=== PATIENT | male | born 1970 | race Caucasian/White ===

== ENCOUNTER 2017-02-14 14:51 | Inpatient (IN) | payer BC ==
[~2017-02-14] VITALS: Ht 190.5 cm; Wt 115.2 kg
[2017-02-14] MEDS ORDERED: SILD20TA2 PO (21:51)
[2017-02-14] MEDS ORDERED: MUPI22OI2 TP (21:51)
[2017-02-14] MEDS ORDERED: ALPR2TAB5 PO (21:51)
[2017-02-14] MEDS ORDERED: QUET25TA5 PO (21:51)
[2017-02-14] MEDS ORDERED: DEXT15TA2 PO (21:51)
[2017-02-14] MEDS: QUEtiapine 25 MG TABLET. PO SCH (22:00)
[2017-02-14] MEDS: ALPRAZolam 1 MG TABLET PO PRN (22:06)
[2017-02-14] MEDS: HYDROcodone/APAP 10/325 1 TAB TABLET PO PRN (22:07)
[2017-02-14] MEDS ORDERED: diphenhydrAMINE 50 MG/ML VIAL IVP PRN (22:30)
--- NOTE | 2017-02-14 22:45 | PDOC1 ---
History and Physical Date of Admission Date of Admission DATE: 02/14/17 TIME: 22:38 Source Source: Chart review, Patient History of Present Illness History of Present Illness he had an injury to left lower leg 10 days ago, with a few abrasions near near , and large area of injury on mid pierre, over days, the smaller excoriations have healed well, but the mid pierre area has swollen and turned red and dark and the surrounding area was dark and reddened. He has been hospitalized at [facility] for 2 days, IV vanco, and some improvement He had an ortho consult there who was considering surgery to decompress daily, but have tried some compression with a ALICIA wrap and a pad, that seems to be improving, the surrounding area of redness is diminished. He has video on his iPAD of initial pictures. 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, has been largely healthy despite ADHD, and anxiety, he does have any pulm disorder, , Past Medical History Cardiovascular: No pertinent hx Pulmonary: No pertinent hx CENTRAL NERVOUS SYSTEM: Other (ADHD) GI: No pertinent hx Heme/Onc: No pertinent hx Hepatobiliary: No pertinent hx Psych: Anxiety, Other Rheumatologic: No pertinent hx Infectious disease: No pertinent hx ENT: No pertinent hx Renal/: No pertinent hx Endocrine: No pertinent hx Dermatology: No pertinent hx Family History Family History: No Significant Social History Smoke: No ALCOHOL: none Drugs: None Current Medications Current Medications Current Medications Acetaminophen/ Hydrocodone Bitart (Lortab 10/325) 1 tab PRN Q6HRS PRN PO PAIN Last administered on 02/14/17 22:07; Start 02/14/17 at 21:45 Quetiapine Fumarate (SEROquel) 25 mg QHS PO ; Start 02/14/17 at 22:00 Sildenafil Citrate (Revatio) 25 mg DAILY PO ; Start 02/15/17 at 09:00; Status UNV Alprazolam (Xanax) 2 mg PRN QHS PRN PO ANXIETY / AGITATION Last administered on 02/14/17 22:06; Start 02/14/17 at 22:00 Morphine Sulfate 4 mg PRN Q2HR PRN IV PAIN; Start 02/14/17 at 22:30 Diphenhydramine HCl (Benadryl) 25 mg PRN Q6HRS PRN IVP ITCHING; Start at 22:30 Vancomycin HCl (Vanco Per Pharmacy) 1 each PRN DAILY PRN MC SEE COMMENTS; Start 02/14/17 at 22:30; Status UNV Non-Formulary Medication 1 ea BID PO ; Start 02/15/17 at 09:00; Status UNV Active Scripts Active Reported Sildenafil (Sildenafil Citrate) 20 Mg Tablet 25 Mg PO DAILY Seroquel (Quetiapine Fumarate) 25 Mg Tablet 1 Tab PO QHS Mupirocin Ointment (Mupirocin) 22 Gm Oint...g. 1 Jhon TP BID Amphetamine Salts 15 Mg Tab (Dextroamphetamine/Amphetamine) 15 Mg Tablet 15 Mg PO Alprazolam 2 Mg Tablet 2 Mg PO QHS PRN Allergies Allergies: Coded Allergies: aspirin (Verified Allergy, Unknown, 02/14/17) ROS General: No: Chills, Night Sweats, Fatigue, Malaise, Appetite, Other PSYCHOLOGICAL ROS: YES: Anxiety, Memory difficulties ( when off adderal ), Sleep disturbances, Suicidal ideation, No: Behavioral Disorder, Concentration difficultie, Decreased libido, Depression, Disorientation, Hallucinations, Hostility, Irritablity, Mood Swings , Obsessive thoughts, Other Eyes: No Blurry vision, No Decreased vision, No Double vision, No Dry eyes, No Excessive tearing, No Eye Pain, No Itchy Eyes, No Loss of vision, No Photophobia , No Scotomata, No Uses contacts, No Uses glasses, No Other HEENT: No: Heacaches, Visual Changes, Hearing change, Nasal congestion, Nasal discharge, Oral lesions, Sinus pain, Sore Throat, Epistaxis, Sneezing, Snoring, Tinnitus, Vertigo, Vocal changes, Other ALLERGY AND IMMUNOLOGY: No: Hives, Insect Bite Sensitivity, Itchy/Watery Eyes, Nasal Congestion, Post Nasal Drip, Seasonal Allergies, Other Respiratory: No: Cough, Hemoptysis, Orthopnea, Pleuritic Pain, Shortness of breath, SOB with excertion, Sputum Changes, Stridor, Tachypnea, Wheezing, Other Gastrointestinal: No Nausea, No Vomiting, No Abdominal Pain, No Diarrhea, No Constipation, No Melena, No Hematochezia, No Other Musculoskeletal: Yes Joint Pain, Yes Joint Stiffness, Yes Pain In:, Yes Swelling In: (pierre) Neurological: No Behavorial Changes, No Bowel/Bladder ControlChng, No Confusion , No Dizziness, No Gait Disturbance, No Headaches, No Impaired Coord/balance, No Memory Loss, No Numbness/Tingling, No Seizures, No Speech Problems, No Tremors, No Visual Changes, No Weakness, No Other Skin: No Dry Skin, No Eczema, No Hair Changes, No Lumps, No Mole Changes, No Mottling, No Nail Changes, No Pruritus, No Rash, No Skin Lesion Changes, No Other, No Acne Physical Exam General: Alert, Cooperative, No acute distress HEENT: Atraumatic, PERRLA, EOMI, Mucous membr. moist/pink Lungs: Clear to auscultation, Normal air movement Heart: no murmurs Abdomen: Normal bowel sounds, Soft Extremities: No clubbing, Other (large hematoma or abcess to mid pierre, ) Skin: Other (surrounding erythema, ) Neuro: Normal speech, Normal tone, Sensation intact Psych/Mental Status: Mental status NL, Mood NL Vitals Vitals Vital Signs Date Time Temp Pulse Resp B/P (MAP) Pulse Ox O2 Delivery O2 Flow Rate FiO2 02/14/17 22:07 Room Air VTE Prophylaxis Ordered VTE Prophylaxis Devices: Yes VTE Pharmacological Prophylaxi: No Assessment/Plan Assessment/Plan cellulitis with possible abcess, improving with IV vanco, consult ID poss hematoma, no arthrosis, able to walk, but severe pain, Ortho consult, had been following, considering poss surg, hold Sq DVT proph, poss surg, Anxiety d/o, Xanax 3-4 times per day adult ADHD, he reports he cannot concentrate on what the doctors are saying without it, no longer any on formulary, he will need to provide his own admit KEDAR PLASCENCIA MD Feb 14, 2017 22:45
[2017-02-14 23:00] VITALS: BP 115/69
[2017-02-14] MEDS ORDERED: VANCOMYCIN 1.25 GM in IV DEXTROSE 5% 250 ML IV SCH (23:00)
[2017-02-14] MEDS: VANCOMYCIN PER PHARMACY MC PRN (23:48)
[2017-02-15] MEDS: VANCOMYCIN PER PHARMACY MC PRN ×2 (00:05→12:58)
[2017-02-15 03:00] VITALS: BP 123/86
[2017-02-15] MEDS ORDERED: VANCOMYCIN RANDOM LEVEL. MC ONE (05:00)
[2017-02-15 06:06] LABS: BASO % 1 % (0-3); EOS % 4 % (0-3); HEMATOCRIT 40.3 % (39.0-53.0); HEMOGLOBIN 13.9 g/dL (13.0-17.5); LYMPH # 2.6 x10^3/uL (1.0-4.8); LYMPH % 43 % (24-48); MEAN CORPUSCULAR HEMOGLOBIN 32 pg (25-35); MEAN CORPUSCULAR HGB CONC 35 g/dL (31-37); MEAN CORPUSCULAR VOLUME 92 fL (79-100); MONO % 10 % (0-9); NEUT % 42 % (31-73); PLATELET COUNT 327 x10^3/uL (140-400); RED BLOOD COUNT 4.38 x10^6/uL (4.30-5.70); RED CELL DISTRIBUTION WIDTH 13.2 % (11.5-14.5); WHITE BLOOD COUNT 5.9 x10^3/uL (4.0-11.0)
[2017-02-15 06:37] LABS: ALBUMIN 3.1 g/dL (3.4-5.0); CALCIUM 9.1 mg/dL (8.5-10.1); CREATININE 0.8 mg/dL (0.7-1.3); GFR 103.6; POTASSIUM 3.9 mmol/L (3.5-5.1); TOTAL BILIRUBIN 0.2 mg/dL (0.2-1.0); TOTAL PROTEIN 6.2 g/dL (6.4-8.2)
[2017-02-15 07:00] VITALS: BP 107/76
[2017-02-15] MEDS ORDERED: SILDENAFIL CITRATE 20 MG TABLET. PO SCH (09:00)
[2017-02-15] MEDS ORDERED: NON FORMULARY ITEM PO SCH (09:00)
[2017-02-15 11:00] VITALS: BP 119/79
[2017-02-15] MEDS: VANCOMYCIN 1.25 GM in IV DEXTROSE 5% 250 ML IV SCH ×2 (11:42→23:04)
[2017-02-15] MEDS ORDERED: TETANUS AND DIPHTHERIA TOX/PF 0.5 ML DISP.SYRIN. VAX IM ONE (13:00)
--- NOTE | 2017-02-15 13:07 | PDOC ---
Infectious Disease Note ROS ROS Vital Sign Vital Signs Vital Signs Date Time Temp Pulse Resp B/P (MAP) Pulse Ox O2 Delivery O2 Flow Rate FiO2 02/15/17 11:00 98.7 71 20 119/79 (92) 98 Room Air 98.7 Physical Exam PHYSICAL EXAM Labs Lab Laboratory Tests Test 02/15/17 05:05 White Blood Count 5.9 x10^3/uL (4.0-11.0) Red Blood Count 4.38 x10^6/uL (4.30-5.70) Hemoglobin 13.9 g/dL (13.0-17.5) Hematocrit 40.3 % (39.0-53.0) Mean Corpuscular Volume 92 fL (79-100) Mean Corpuscular Hemoglobin 32 pg (25-35) Mean Corpuscular Hemoglobin Concent 35 g/dL (31-37) Red Cell Distribution Width 13.2 % (11.5-14.5) Platelet Count 327 x10^3/uL (140-400) Neutrophils (%) (Auto) 42 % (31-73) Lymphocytes (%) (Auto) 43 % (24-48) Monocytes (%) (Auto) 10 % (0-9) Eosinophils (%) (Auto) 4 % (0-3) Basophils (%) (Auto) 1 % (0-3) Neutrophils # (Auto) 2.5 x10^3uL (1.8-7.7) Lymphocytes # (Auto) 2.6 x10^3/uL (1.0-4.8) Monocytes # (Auto) 0.6 x10^3/uL (0.0-1.1) Eosinophils # (Auto) 0.3 x10^3/uL (0.0-0.7) Basophils # (Auto) 0.0 x10^3/uL (0.0-0.2) Sodium Level 141 mmol/L (136-145) Potassium Level 3.9 mmol/L (3.5-5.1) Chloride Level 105 mmol/L (98-107) Carbon Dioxide Level 30 mmol/L (21-32) Anion Gap 6 (6-14) Blood Urea Nitrogen 16 mg/dL (8-26) Creatinine 0.8 mg/dL (0.7-1.3) Estimated GFR (Cockcroft-Gault) 103.6 BUN/Creatinine Ratio 20 (6-20) Glucose Level 85 mg/dL (70-99) Calcium Level 9.1 mg/dL (8.5-10.1) Total Bilirubin 0.2 mg/dL (0.2-1.0) Aspartate Amino Transf (AST/SGOT) 5 U/L (15-37) Alanine Aminotransferase (ALT/SGPT) 26 U/L (16-63) Alkaline Phosphatase 71 U/L (46-116) Total Protein 6.2 g/dL (6.4-8.2) Albumin 3.1 g/dL (3.4-5.0) Albumin/Globulin Ratio 1.0 (1.0-1.7) Random Vancomycin Level 17.9 mcg/mL Objective Assessment LLE cellulitis - took 5 days of Bactrim prior to admit to [facility] ? LLE abscess vs possible hematoma. Has stopped improving- no wound cults - d/w micro at [facility] ? H/o MRSA ADHD Plan Plan of Care Cont Vanc Await Ortho eval will likely benefit from I and D vs aspiration D/w [facility] pharmacy no tetanus will order Thank you # [phone] SHALONDA BAJWA MD Feb 15, 2017 13:07
--- NOTE | 2017-02-15 14:53 | PDOC2 ---
CONSULT Date of Consult Date of Consult DATE: 02/15/17 TIME: 14:51 Reason for Consult Reason for Consult: left leg swelling Identification/Chief Complaint Chief Complaint left leg swelling Problems: Source Source: Chart review, Patient History of Present Illness Reason for Visit: This 46-year-old man banged his leg 2 weeks ago on a concrete block. He's had swelling and pain since then. It was getting better on some oral antibiotics but has now stabilized and plateaued, and still has a firm swollen tender area on the front of the pierre. Past Medical History Cardiovascular: No pertinent hx Pulmonary: No pertinent hx CENTRAL NERVOUS SYSTEM: Other (ADHD) GI: No pertinent hx Heme/Onc: No pertinent hx Hepatobiliary: No pertinent hx Psych: Anxiety, Other Rheumatologic: No pertinent hx Infectious disease: No pertinent hx ENT: No pertinent hx Renal/: No pertinent hx Endocrine: No pertinent hx Dermatology: No pertinent hx Family History Family History: No Significant Social History No ALCOHOL: none Drugs: None Current Medications Current Medications Current Medications Acetaminophen/ Hydrocodone Bitart (Lortab 10/325) 1 tab PRN Q6HRS PRN PO PAIN Last administered on 02/14/17 22:07; Start 02/14/17 at 21:45 Quetiapine Fumarate (SEROquel) 25 mg QHS PO ; Start 02/14/17 at 22:00 Sildenafil Citrate (Revatio) 25 mg DAILY PO ; Start 02/15/17 at 09:00; Status UNV Alprazolam (Xanax) 2 mg PRN QHS PRN PO ANXIETY / AGITATION Last administered on 02/14/17 22:06; Start 02/14/17 at 22:00 Morphine Sulfate 4 mg PRN Q2HR PRN IV PAIN; Start 02/14/17 at 22:30 Diphenhydramine HCl (Benadryl) 25 mg PRN Q6HRS PRN IVP ITCHING; Start at 22:30 Vancomycin HCl (Vanco Per Pharmacy) 1 each PRN DAILY PRN MC SEE COMMENTS Last administered on 02/15/17 12:58; Start 02/14/17 at 23:00 Non-Formulary Medication 1 ea BID PO ; Start 02/15/17 at 09:00; Status UNV Vancomycin HCl 1.25 gm/Dextrose 250 ml @ 167 mls/hr Q12H IV Last administered on 02/14/17 23:20; Start 02/14/17 at 23:00; Stop 02/14/17 at 23:45; Status DC Alprazolam (Xanax) 1 mg PRN Q6HRS PRN PO ANXIETY / AGITATION; Start 02/14/17 at 23:15 Vancomycin HCl 1 each 1X ONCE MC ; Start 02/15/17 at 05:00; Stop 02/15/17 at 05:01; Status DC Vancomycin HCl 1.25 gm/Dextrose 250 ml @ 167 mls/hr Q12H IV Last administered on 02/15/17 11:42; Start 02/15/17 at 11:00 Vancomycin HCl 1 each 1X ONCE MC ; Start 02/16/17 at 10:30; Stop 02/16/17 at 10:31 Tetanus/ Diphtheria Toxoids (Tenivac Syringe) 0.5 ml ONCE ONCE VAX IM Last administered on 02/15/17 13:33; Start 02/15/17 at 13:00; Stop 02/15/17 at 13 :01; Status DC Active Scripts Active Reported Sildenafil (Sildenafil Citrate) 20 Mg Tablet 25 Mg PO DAILY Seroquel (Quetiapine Fumarate) 25 Mg Tablet 1 Tab PO QHS Mupirocin Ointment (Mupirocin) 22 Gm Oint...g. 1 Jhon TP BID Amphetamine Salts 15 Mg Tab (Dextroamphetamine/Amphetamine) 15 Mg Tablet 15 Mg PO Alprazolam 2 Mg Tablet 2 Mg PO QHS PRN Allergies Allergies: Coded Allergies: aspirin (Verified Allergy, Unknown, 02/14/17) Physical Exam General: Alert, Cooperative HEENT: Atraumatic Lungs: Normal air movement Heart: Regular rate Abdomen: Soft Extremities: Other (raised hematoma type mass on the front of the left pierre. Abrasion over the area but no drainage. Trace surrounding erythema. Possible abscess although more likely persistent hematoma. Intact light touch sensation. Normal neurovascular function distally.) Neuro: Normal speech, Sensation intact Psych/Mental Status: Mood NL MUSCULOSKELETAL: Abnormal exam of left (lower extremity as above) Vitals VITALS Vital Signs Date Time Temp Pulse Resp B/P (MAP) Pulse Ox O2 Delivery O2 Flow Rate FiO2 02/15/17 11:00 98.7 71 20 119/79 (92) 98 Room Air 98.7 Labs Labs Laboratory Tests Test 02/15/17 05:05 White Blood Count 5.9 x10^3/uL (4.0-11.0) Red Blood Count 4.38 x10^6/uL (4.30-5.70) Hemoglobin 13.9 g/dL (13.0-17.5) Hematocrit 40.3 % (39.0-53.0) Mean Corpuscular Volume 92 fL (79-100) Mean Corpuscular Hemoglobin 32 pg (25-35) Mean Corpuscular Hemoglobin Concent 35 g/dL (31-37) Red Cell Distribution Width 13.2 % (11.5-14.5) Platelet Count 327 x10^3/uL (140-400) Neutrophils (%) (Auto) 42 % (31-73) Lymphocytes (%) (Auto) 43 % (24-48) Monocytes (%) (Auto) 10 % (0-9) Eosinophils (%) (Auto) 4 % (0-3) Basophils (%) (Auto) 1 % (0-3) Neutrophils # (Auto) 2.5 x10^3uL (1.8-7.7) Lymphocytes # (Auto) 2.6 x10^3/uL (1.0-4.8) Monocytes # (Auto) 0.6 x10^3/uL (0.0-1.1) Eosinophils # (Auto) 0.3 x10^3/uL (0.0-0.7) Basophils # (Auto) 0.0 x10^3/uL (0.0-0.2) Sodium Level 141 mmol/L (136-145) Potassium Level 3.9 mmol/L (3.5-5.1) Chloride Level 105 mmol/L (98-107) Carbon Dioxide Level 30 mmol/L (21-32) Anion Gap 6 (6-14) Blood Urea Nitrogen 16 mg/dL (8-26) Creatinine 0.8 mg/dL (0.7-1.3) Estimated GFR (Cockcroft-Gault) 103.6 BUN/Creatinine Ratio 20 (6-20) Glucose Level 85 mg/dL (70-99) Calcium Level 9.1 mg/dL (8.5-10.1) Total Bilirubin 0.2 mg/dL (0.2-1.0) Aspartate Amino Transf (AST/SGOT) 5 U/L (15-37) Alanine Aminotransferase (ALT/SGPT) 26 U/L (16-63) Alkaline Phosphatase 71 U/L (46-116) Total Protein 6.2 g/dL (6.4-8.2) Albumin 3.1 g/dL (3.4-5.0) Albumin/Globulin Ratio 1.0 (1.0-1.7) Random Vancomycin Level 17.9 mcg/mL Laboratory Tests Test 02/15/17 05:05 White Blood Count 5.9 x10^3/uL (4.0-11.0) Red Blood Count 4.38 x10^6/uL (4.30-5.70) Hemoglobin 13.9 g/dL (13.0-17.5) Hematocrit 40.3 % (39.0-53.0) Mean Corpuscular Volume 92 fL (79-100) Mean Corpuscular Hemoglobin 32 pg (25-35) Mean Corpuscular Hemoglobin Concent 35 g/dL (31-37) Red Cell Distribution Width 13.2 % (11.5-14.5) Platelet Count 327 x10^3/uL (140-400) Neutrophils (%) (Auto) 42 % (31-73) Lymphocytes (%) (Auto) 43 % (24-48) Monocytes (%) (Auto) 10 % (0-9) Eosinophils (%) (Auto) 4 % (0-3) Basophils (%) (Auto) 1 % (0-3) Neutrophils # (Auto) 2.5 x10^3uL (1.8-7.7) Lymphocytes # (Auto) 2.6 x10^3/uL (1.0-4.8) Monocytes # (Auto) 0.6 x10^3/uL (0.0-1.1) Eosinophils # (Auto) 0.3 x10^3/uL (0.0-0.7) Basophils # (Auto) 0.0 x10^3/uL (0.0-0.2) Sodium Level 141 mmol/L (136-145) Potassium Level 3.9 mmol/L (3.5-5.1) Chloride Level 105 mmol/L (98-107) Carbon Dioxide Level 30 mmol/L (21-32) Anion Gap 6 (6-14) Blood Urea Nitrogen 16 mg/dL (8-26) Creatinine 0.8 mg/dL (0.7-1.3) Estimated GFR (Cockcroft-Gault) 103.6 BUN/Creatinine Ratio 20 (6-20) Glucose Level 85 mg/dL (70-99) Calcium Level 9.1 mg/dL (8.5-10.1) Total Bilirubin 0.2 mg/dL (0.2-1.0) Aspartate Amino Transf (AST/SGOT) 5 U/L (15-37) Alanine Aminotransferase (ALT/SGPT) 26 U/L (16-63) Alkaline Phosphatase 71 U/L (46-116) Total Protein 6.2 g/dL (6.4-8.2) Albumin 3.1 g/dL (3.4-5.0) Albumin/Globulin Ratio 1.0 (1.0-1.7) Random Vancomycin Level 17.9 mcg/mL Images Images No imaging available Assessment/Plan Assessment/Plan Left leg hematoma or possible abscess. I discussed with him options for treatment such as a surgical drainage. We might also try a bedside aspiration with a large-bore needle which may be able to retrieve the hematoma. TO RUIZ MD Feb 15, 2017 14:53
[2017-02-15 15:00] VITALS: BP 128/89
[2017-02-15] MEDS ORDERED: LIDOCAINE 1% / SOD BICARB 8.4% 20 ML VIAL. IJ ONE (15:00)
[2017-02-15] MEDS ORDERED: LIDOCAINE 1% 20 ML VIAL. IJ ONE (15:15)
--- NOTE | 2017-02-15 15:20 | PDOC ---
Provider Note Provider Note leg swelling aspirated after discussion with patient. Sterile prep with Chlorhexidine. 1% lidocaine anesthesia. 5 mL of dark bloody hematoma fluid, no pus. Sent for specimen. Will plan surgical incision and drainage tomorrow, since large swelling persists. TO RUIZ MD Feb 15, 2017 15:20
--- NOTE | 2017-02-15 16:12 | PDOC ---
PROGRESS NOTES Chief Complaint Chief Complaint cellulitis with possible abcess vs hematoma Anxiety d/o, Xanax 3-4 times per day adult ADHD, he reports he cannot concentrate on what the doctors are saying without it, no longer any on formulary, he will need to provide his own BPH plan: fu with Ortho, i and d fu with ID, on vanco for now add flomax, check PSA, UA History of Present Illness History of Present Illness ROS: no fever, chills, sob, chest pain c/o left pierre pain Vitals Vitals Vital Signs Date Time Temp Pulse Resp B/P (MAP) Pulse Ox O2 Delivery O2 Flow Rate FiO2 02/15/17 11:00 98.7 71 20 119/79 (92) 98 Room Air 98.7 Physical Exam General: Alert, Oriented X3, Cooperative Heart: Regular rate, Normal S1, Normal S2 Lungs: Clear Abdomen: Normal bowel sounds, Soft Extremities: No clubbing, No cyanosis, Other (raised hematoma type mass on the front of the left pierre. Abrasion over the area but no drainage. Trace surrounding erythema. Possible abscess although more likely persistent hematoma. Intact light touch sensation. Normal neurovascular function distally.) Skin: Other (surrounding erythema, ) Labs LABS Laboratory Tests Test 02/15/17 05:05 White Blood Count 5.9 x10^3/uL (4.0-11.0) Red Blood Count 4.38 x10^6/uL (4.30-5.70) Hemoglobin 13.9 g/dL (13.0-17.5) Hematocrit 40.3 % (39.0-53.0) Mean Corpuscular Volume 92 fL (79-100) Mean Corpuscular Hemoglobin 32 pg (25-35) Mean Corpuscular Hemoglobin Concent 35 g/dL (31-37) Red Cell Distribution Width 13.2 % (11.5-14.5) Platelet Count 327 x10^3/uL (140-400) Neutrophils (%) (Auto) 42 % (31-73) Lymphocytes (%) (Auto) 43 % (24-48) Monocytes (%) (Auto) 10 % (0-9) Eosinophils (%) (Auto) 4 % (0-3) Basophils (%) (Auto) 1 % (0-3) Neutrophils # (Auto) 2.5 x10^3uL (1.8-7.7) Lymphocytes # (Auto) 2.6 x10^3/uL (1.0-4.8) Monocytes # (Auto) 0.6 x10^3/uL (0.0-1.1) Eosinophils # (Auto) 0.3 x10^3/uL (0.0-0.7) Basophils # (Auto) 0.0 x10^3/uL (0.0-0.2) Sodium Level 141 mmol/L (136-145) Potassium Level 3.9 mmol/L (3.5-5.1) Chloride Level 105 mmol/L (98-107) Carbon Dioxide Level 30 mmol/L (21-32) Anion Gap 6 (6-14) Blood Urea Nitrogen 16 mg/dL (8-26) Creatinine 0.8 mg/dL (0.7-1.3) Estimated GFR (Cockcroft-Gault) 103.6 BUN/Creatinine Ratio 20 (6-20) Glucose Level 85 mg/dL (70-99) Calcium Level 9.1 mg/dL (8.5-10.1) Total Bilirubin 0.2 mg/dL (0.2-1.0) Aspartate Amino Transf (AST/SGOT) 5 U/L (15-37) Alanine Aminotransferase (ALT/SGPT) 26 U/L (16-63) Alkaline Phosphatase 71 U/L (46-116) Total Protein 6.2 g/dL (6.4-8.2) Albumin 3.1 g/dL (3.4-5.0) Albumin/Globulin Ratio 1.0 (1.0-1.7) Random Vancomycin Level 17.9 mcg/mL Comment Review of Relevant I have reviewed the following items lisa (where applicable) has been applied. Labs Laboratory Tests Test 02/15/17 05:05 White Blood Count 5.9 x10^3/uL (4.0-11.0) Red Blood Count 4.38 x10^6/uL (4.30-5.70) Hemoglobin 13.9 g/dL (13.0-17.5) Hematocrit 40.3 % (39.0-53.0) Mean Corpuscular Volume 92 fL (79-100) Mean Corpuscular Hemoglobin 32 pg (25-35) Mean Corpuscular Hemoglobin Concent 35 g/dL (31-37) Red Cell Distribution Width 13.2 % (11.5-14.5) Platelet Count 327 x10^3/uL (140-400) Neutrophils (%) (Auto) 42 % (31-73) Lymphocytes (%) (Auto) 43 % (24-48) Monocytes (%) (Auto) 10 % (0-9) Eosinophils (%) (Auto) 4 % (0-3) Basophils (%) (Auto) 1 % (0-3) Neutrophils # (Auto) 2.5 x10^3uL (1.8-7.7) Lymphocytes # (Auto) 2.6 x10^3/uL (1.0-4.8) Monocytes # (Auto) 0.6 x10^3/uL (0.0-1.1) Eosinophils # (Auto) 0.3 x10^3/uL (0.0-0.7) Basophils # (Auto) 0.0 x10^3/uL (0.0-0.2) Sodium Level 141 mmol/L (136-145) Potassium Level 3.9 mmol/L (3.5-5.1) Chloride Level 105 mmol/L (98-107) Carbon Dioxide Level 30 mmol/L (21-32) Anion Gap 6 (6-14) Blood Urea Nitrogen 16 mg/dL (8-26) Creatinine 0.8 mg/dL (0.7-1.3) Estimated GFR (Cockcroft-Gault) 103.6 BUN/Creatinine Ratio 20 (6-20) Glucose Level 85 mg/dL (70-99) Calcium Level 9.1 mg/dL (8.5-10.1) Total Bilirubin 0.2 mg/dL (0.2-1.0) Aspartate Amino Transf (AST/SGOT) 5 U/L (15-37) Alanine Aminotransferase (ALT/SGPT) 26 U/L (16-63) Alkaline Phosphatase 71 U/L (46-116) Total Protein 6.2 g/dL (6.4-8.2) Albumin 3.1 g/dL (3.4-5.0) Albumin/Globulin Ratio 1.0 (1.0-1.7) Random Vancomycin Level 17.9 mcg/mL Laboratory Tests Test 02/15/17 05:05 White Blood Count 5.9 x10^3/uL (4.0-11.0) Red Blood Count 4.38 x10^6/uL (4.30-5.70) Hemoglobin 13.9 g/dL (13.0-17.5) Hematocrit 40.3 % (39.0-53.0) Mean Corpuscular Volume 92 fL (79-100) Mean Corpuscular Hemoglobin 32 pg (25-35) Mean Corpuscular Hemoglobin Concent 35 g/dL (31-37) Red Cell Distribution Width 13.2 % (11.5-14.5) Platelet Count 327 x10^3/uL (140-400) Neutrophils (%) (Auto) 42 % (31-73) Lymphocytes (%) (Auto) 43 % (24-48) Monocytes (%) (Auto) 10 % (0-9) Eosinophils (%) (Auto) 4 % (0-3) Basophils (%) (Auto) 1 % (0-3) Neutrophils # (Auto) 2.5 x10^3uL (1.8-7.7) Lymphocytes # (Auto) 2.6 x10^3/uL (1.0-4.8) Monocytes # (Auto) 0.6 x10^3/uL (0.0-1.1) Eosinophils # (Auto) 0.3 x10^3/uL (0.0-0.7) Basophils # (Auto) 0.0 x10^3/uL (0.0-0.2) Sodium Level 141 mmol/L (136-145) Potassium Level 3.9 mmol/L (3.5-5.1) Chloride Level 105 mmol/L (98-107) Carbon Dioxide Level 30 mmol/L (21-32) Anion Gap 6 (6-14) Blood Urea Nitrogen 16 mg/dL (8-26) Creatinine 0.8 mg/dL (0.7-1.3) Estimated GFR (Cockcroft-Gault) 103.6 BUN/Creatinine Ratio 20 (6-20) Glucose Level 85 mg/dL (70-99) Calcium Level 9.1 mg/dL (8.5-10.1) Total Bilirubin 0.2 mg/dL (0.2-1.0) Aspartate Amino Transf (AST/SGOT) 5 U/L (15-37) Alanine Aminotransferase (ALT/SGPT) 26 U/L (16-63) Alkaline Phosphatase 71 U/L (46-116) Total Protein 6.2 g/dL (6.4-8.2) Albumin 3.1 g/dL (3.4-5.0) Albumin/Globulin Ratio 1.0 (1.0-1.7) Random Vancomycin Level 17.9 mcg/mL Medications Current Medications Acetaminophen/ Hydrocodone Bitart (Lortab 10/325) 1 tab PRN Q6HRS PRN PO PAIN Last administered on 02/14/17 22:07; Start 02/14/17 at 21:45 Quetiapine Fumarate (SEROquel) 25 mg QHS PO ; Start 02/14/17 at 22:00 Sildenafil Citrate (Revatio) 25 mg DAILY PO ; Start 02/15/17 at 09:00; Status UNV Alprazolam (Xanax) 2 mg PRN QHS PRN PO ANXIETY / AGITATION Last administered on 02/14/17 22:06; Start 02/14/17 at 22:00 Morphine Sulfate 4 mg PRN Q2HR PRN IV PAIN; Start 02/14/17 at 22:30 Diphenhydramine HCl (Benadryl) 25 mg PRN Q6HRS PRN IVP ITCHING; Start at 22:30 Vancomycin HCl (Vanco Per Pharmacy) 1 each PRN DAILY PRN MC SEE COMMENTS Last administered on 02/15/17 12:58; Start 02/14/17 at 23:00 Non-Formulary Medication 1 ea BID PO ; Start 02/15/17 at 09:00; Status UNV Vancomycin HCl 1.25 gm/Dextrose 250 ml @ 167 mls/hr Q12H IV Last administered on 02/14/17 23:20; Start 02/14/17 at 23:00; Stop 02/14/17 at 23:45; Status DC Alprazolam (Xanax) 1 mg PRN Q6HRS PRN PO ANXIETY / AGITATION; Start 02/14/17 at 23:15 Vancomycin HCl 1 each 1X ONCE MC ; Start 02/15/17 at 05:00; Stop 02/15/17 at 05:01; Status DC Vancomycin HCl 1.25 gm/Dextrose 250 ml @ 167 mls/hr Q12H IV Last administered on 11/17/17at 11:42; Start 02/15/17 at 11:00 Vancomycin HCl 1 each 1X ONCE MC ; Start 02/16/17 at 10:30; Stop 02/16/17 at 10:31 Tetanus/ Diphtheria Toxoids (Tenivac Syringe) 0.5 ml ONCE ONCE VAX IM Last administered on 02/15/17t 13:33; Start 02/15/17 at 13:00; Stop 02/15/17 at 13 :01; Status DC Lidocaine/Sodium Bicarbonate (Buffered Lidocaine 1%) 20 ml 1X ONCE IJ ; Start 02/15/17 at 15:00; Stop 02/15/17 at 15:00; Status DC Lidocaine HCl 20 ml 1X ONCE IJ ; Start 02/15/17 at 15:15; Stop 02/15/17 at 15 :16; Status DC Active Scripts Active Reported Sildenafil (Sildenafil Citrate) 20 Mg Tablet 25 Mg PO DAILY Seroquel (Quetiapine Fumarate) 25 Mg Tablet 1 Tab PO QHS Mupirocin Ointment (Mupirocin) 22 Gm Oint...g. 1 Jhon TP BID Amphetamine Salts 15 Mg Tab (Dextroamphetamine/Amphetamine) 15 Mg Tablet 15 Mg PO Alprazolam 2 Mg Tablet 2 Mg PO QHS PRN Vitals/I & O Vital Sign - Last 24 Hours 02/14/17 02/14/17 02/15/17 02/15/17 22:07 23:00 03:00 07:00 Temp 97.3 97.0 96.3 97.3 97.0 96.3 Pulse 88 66 65 Resp 18 18 20 B/P (MAP) 115/69 (84) 123/86 (98) 107/76 (86) Pulse Ox 98 99 96 O2 Delivery Room Air Room Air Room Air Room Air 02/15/17 11:00 Temp 98.7 98.7 Pulse 71 Resp 20 B/P (MAP) 119/79 (92) Pulse Ox 98 O2 Delivery Room Air Intake and Output 02/14/17 02/14/17 02/15/17 14:59 22:59 06:59 Intake Total 250 ml Balance 250 ml WARD DONNELLY MD Feb 15, 2017 16:12
[2017-02-15] MEDS ORDERED: traMADol 50 MG TABLET PO PRN ×2 (16:15)
[2017-02-15] MEDS ORDERED: MORPHINE SULFATE 4 MG/ML DISP.SYRIN. IV PRN (16:15)
[2017-02-15] MEDS ORDERED: DOCUSATE SODIUM 100 MG CAPSULE. PO PRN ×2 (16:15)
[2017-02-15] MEDS ORDERED: hydrALAZINE 20 MG/ML VIAL. IVP PRN ×2 (16:15)
[2017-02-15] MEDS ORDERED: MORPHINE SULFATE 2 MG/ML DISP.SYRIN. IV PRN (16:15)
[2017-02-15] MEDS ORDERED: ONDANSETRON PF 4 MG/2 ML VIAL. IV PRN ×2 (16:15)
[2017-02-15] MEDS ORDERED: ACETAMINOPHEN 325 MG TABLET. PO PRN ×2 (16:15)
[2017-02-15] MEDS: HYDROcodone/APAP 10/325 1 TAB TABLET PO PRN (18:36)
[2017-02-15] MEDS: ALPRAZolam 1 MG TABLET PO PRN ×2 (18:36→23:13)
--- NOTE | 2017-02-15 19:44 | PDOC ---
PROGRESS NOTES Subjective Subjective Problems overnight: Objective Vital Signs Vital Signs Date Time Temp Pulse Resp B/P (MAP) Pulse Ox O2 Delivery O2 Flow Rate FiO2 02/15/17 18:36 Room Air 02/15/17 15:00 97.5 76 20 128/89 (102) 97 97.5 Labs Laboratory Tests Test 02/15/17 05:05 White Blood Count 5.9 x10^3/uL (4.0-11.0) Red Blood Count 4.38 x10^6/uL (4.30-5.70) Hemoglobin 13.9 g/dL (13.0-17.5) Hematocrit 40.3 % (39.0-53.0) Mean Corpuscular Volume 92 fL (79-100) Mean Corpuscular Hemoglobin 32 pg (25-35) Mean Corpuscular Hemoglobin Concent 35 g/dL (31-37) Red Cell Distribution Width 13.2 % (11.5-14.5) Platelet Count 327 x10^3/uL (140-400) Neutrophils (%) (Auto) 42 % (31-73) Lymphocytes (%) (Auto) 43 % (24-48) Monocytes (%) (Auto) 10 % (0-9) Eosinophils (%) (Auto) 4 % (0-3) Basophils (%) (Auto) 1 % (0-3) Neutrophils # (Auto) 2.5 x10^3uL (1.8-7.7) Lymphocytes # (Auto) 2.6 x10^3/uL (1.0-4.8) Monocytes # (Auto) 0.6 x10^3/uL (0.0-1.1) Eosinophils # (Auto) 0.3 x10^3/uL (0.0-0.7) Basophils # (Auto) 0.0 x10^3/uL (0.0-0.2) Sodium Level 141 mmol/L (136-145) Potassium Level 3.9 mmol/L (3.5-5.1) Chloride Level 105 mmol/L (98-107) Carbon Dioxide Level 30 mmol/L (21-32) Anion Gap 6 (6-14) Blood Urea Nitrogen 16 mg/dL (8-26) Creatinine 0.8 mg/dL (0.7-1.3) Estimated GFR (Cockcroft-Gault) 103.6 BUN/Creatinine Ratio 20 (6-20) Glucose Level 85 mg/dL (70-99) Calcium Level 9.1 mg/dL (8.5-10.1) Total Bilirubin 0.2 mg/dL (0.2-1.0) Aspartate Amino Transf (AST/SGOT) 5 U/L (15-37) Alanine Aminotransferase (ALT/SGPT) 26 U/L (16-63) Alkaline Phosphatase 71 U/L (46-116) Total Protein 6.2 g/dL (6.4-8.2) Albumin 3.1 g/dL (3.4-5.0) Albumin/Globulin Ratio 1.0 (1.0-1.7) Random Vancomycin Level 17.9 mcg/mL Laboratory Tests Test 02/15/17 05:05 White Blood Count 5.9 x10^3/uL (4.0-11.0) Red Blood Count 4.38 x10^6/uL (4.30-5.70) Hemoglobin 13.9 g/dL (13.0-17.5) Hematocrit 40.3 % (39.0-53.0) Mean Corpuscular Volume 92 fL (79-100) Mean Corpuscular Hemoglobin 32 pg (25-35) Mean Corpuscular Hemoglobin Concent 35 g/dL (31-37) Red Cell Distribution Width 13.2 % (11.5-14.5) Platelet Count 327 x10^3/uL (140-400) Neutrophils (%) (Auto) 42 % (31-73) Lymphocytes (%) (Auto) 43 % (24-48) Monocytes (%) (Auto) 10 % (0-9) Eosinophils (%) (Auto) 4 % (0-3) Basophils (%) (Auto) 1 % (0-3) Neutrophils # (Auto) 2.5 x10^3uL (1.8-7.7) Lymphocytes # (Auto) 2.6 x10^3/uL (1.0-4.8) Monocytes # (Auto) 0.6 x10^3/uL (0.0-1.1) Eosinophils # (Auto) 0.3 x10^3/uL (0.0-0.7) Basophils # (Auto) 0.0 x10^3/uL (0.0-0.2) Sodium Level 141 mmol/L (136-145) Potassium Level 3.9 mmol/L (3.5-5.1) Chloride Level 105 mmol/L (98-107) Carbon Dioxide Level 30 mmol/L (21-32) Anion Gap 6 (6-14) Blood Urea Nitrogen 16 mg/dL (8-26) Creatinine 0.8 mg/dL (0.7-1.3) Estimated GFR (Cockcroft-Gault) 103.6 BUN/Creatinine Ratio 20 (6-20) Glucose Level 85 mg/dL (70-99) Calcium Level 9.1 mg/dL (8.5-10.1) Total Bilirubin 0.2 mg/dL (0.2-1.0) Aspartate Amino Transf (AST/SGOT) 5 U/L (15-37) Alanine Aminotransferase (ALT/SGPT) 26 U/L (16-63) Alkaline Phosphatase 71 U/L (46-116) Total Protein 6.2 g/dL (6.4-8.2) Albumin 3.1 g/dL (3.4-5.0) Albumin/Globulin Ratio 1.0 (1.0-1.7) Random Vancomycin Level 17.9 mcg/mL Assessment Assessment POD# [], S/P [] Problems: Plan Plan of Care I was asked by Dr. Guajardo to assume operative care of this patient. Plan for I&D of left pierre hematoma tomorrow, likely in the afternoon depending on surgical scheduling. TRACE HER MD Feb 15, 2017 19:44
[2017-02-15 19:47] LABS: BILIRUBIN,URINE NEGATIVE (NEG); GLUCOSE,URINE NEGATIVE (NEG); NITRITE,URINE NEGATIVE (NEG); PH,URINE 6.5; PROTEIN,URINE NEGATIVE (NEG-TRACE); UROBILINOGEN,URINE 0.2 mg/dL (0.2 mg/dL)
[2017-02-15 19:53] VITALS: BP 111/78
[2017-02-15 19:59] LABS: BACTERIA,URINE 0 /HPF (0-FEW); RBC,URINE 0 /HPF (0-2); WBC,URINE RARE /HPF (0-4)
[2017-02-15] MEDS: QUEtiapine 25 MG TABLET. PO SCH (20:46)
[2017-02-15] MEDS: TAMSULOSIN 0.4 MG CAP.ER.24H. PO SCH (20:46)
[2017-02-15] MEDS: MORPHINE SULFATE 4 MG/ML DISP.SYRIN. IV PRN (23:04)
[2017-02-15 23:39] VITALS: BP 137/94
[2017-02-16 03:18] VITALS: BP 118/82
[2017-02-16 07:00] VITALS: BP 117/81
[2017-02-16] MEDS ORDERED: IV RINGERS,LACTATED 1000ML 1,000 ML IV SCH (07:22)
[2017-02-16] MEDS ORDERED: fentaNYL PF VIAL 100 MCG/2 ML VIAL IV PRN ×2 (07:30)
[2017-02-16] MEDS ORDERED: HYDROmorphone 2 MG/ML VIAL IV PRN (07:30)
[2017-02-16] MEDS ORDERED: LIDOCAINE 1% PF 2 ML VIAL. ID PRN (07:30)
[2017-02-16] MEDS ORDERED: ONDANSETRON PF 4 MG/2 ML VIAL. IV PRN ×2 (07:30→09:45)
[2017-02-16] MEDS ORDERED: PROCHLORPERAZINE 10 MG/2 ML VIAL. IV PRN (07:30)
[2017-02-16] MEDS ORDERED: fentaNYL PF VIAL 100 MCG/2 ML VIAL ONE (08:39)
[2017-02-16] MEDS ORDERED: PROPOFOL 20 ML IV ONE ×2 (08:39→09:10)
[2017-02-16] MEDS ORDERED: MIDAZOLAM HCL/PF 2 MG/2 ML VIAL. ONE (08:39)
[2017-02-16] MEDS ORDERED: BUPIVACAINE-EPI 0.25%-1:200000 50 ML VIAL. ONE (09:14)
[2017-02-16] MEDS ORDERED: MORPHINE SULFATE 2 MG/ML DISP.SYRIN. ONE (09:31)
[2017-02-16] MEDS: MORPHINE SULFATE 2 MG/ML DISP.SYRIN. IV PRN ×2 (09:32→09:43)
--- NOTE | 2017-02-16 09:40 | PDOC4 ---
Operative Note Operative Note Date of Procedure: February 16, 2017 Pre-Op Diagnosis: Left leg contusion with hematoma S80.12XA Post-Op Diagnosis: Left leg contusion with hematoma S80.12XA Procedure: Incision and drainage left leg deep hematoma CPT 54714 Surgeon: To Guajardo MD Religious Ritual Slaughterer: Ana Maria Amezquita PA-C Anesthesia: General EBL: 10 mL Specimens Obtained: cultures Complications: none Drains: none Indications for Procedure: The patient is a 46-year-old man with left leg contusion, persistent swelling for 2 weeks, tenderness and erythema. He has a large hematoma on the pierre on examination, and I recommended incision and drainage. He has been on antibiotics and tried rest for 2 weeks without any significant relief. The patient and I discussed the risks, benefits and alternatives of surgery. Procedure in Detail: The patient was identified in the preoperative holding area. The correct left lower extremity was marked by me. The patient was taken to the operating room where general propofol anesthesia was used. The patient was left supine on the hospital bed. Preoperative antibiotics were given intravenously. A timeout procedure was performed. The limb was prepared circumferentially from the thigh to the ankle with Betadine solution and sterile drapes were applied. A longitudinal incision was made over the medial aspect of the hematoma. Sharp dissection was used to the level of the tibial cortex bone, tibial periosteum, and the tibialis anterior muscle. A large amount of dark hematoma was noted, and was evacuated with manual pressure, approximately 40 mL. There was no purulence or evidence of infection. Extensive saline irrigation was used. Closure was performed using 2-0 nylon. Sterile dressings were applied. Needle and sponge counts were correct. There were no apparent complications. The patient returned to the recovery room in stable condition. TO GUAJARDO MD Feb 16, 2017 09:40
[2017-02-16] MEDS ORDERED: MORPHINE SULFATE 4 MG/ML DISP.SYRIN. IV PRN ×2 (09:45)
[2017-02-16] MEDS ORDERED: DEXTROSE 50% 25 GM / 50ML DISP.SYRIN. IV PRN (09:45)
[2017-02-16] MEDS ORDERED: HYDROcodone/APAP 7.5/325MG 1 TAB TABLET PO PRN ×2 (09:45)
[2017-02-16] MEDS ORDERED: POLYETHYLENE GLYCOL 3350 17 GM PACKET. PO PRN (09:45)
[2017-02-16] MEDS ORDERED: oxyCODONE IR 5 MG TABLET PO PRN (09:45)
[2017-02-16 10:47] LABS: CALCIUM 8.9 mg/dL (8.5-10.1); CREATININE 0.8 mg/dL (0.7-1.3); GFR 103.6; POTASSIUM 4.3 mmol/L (3.5-5.1)
[2017-02-16 11:00] VITALS: BP 109/74
[2017-02-16 11:00] LABS: BASO % 1 % (0-3); EOS % 4 % (0-3); HEMOGLOBIN 13.9 g/dL (13.0-17.5); LYMPH # 1.8 x10^3/uL (1.0-4.8); LYMPH % 34 % (24-48); MEAN CORPUSCULAR HEMOGLOBIN 31 pg (25-35); MEAN CORPUSCULAR HGB CONC 34 g/dL (31-37); MEAN CORPUSCULAR VOLUME 90 fL (79-100); MONO % 10 % (0-9); NEUT % 53 % (31-73); PLATELET COUNT 345 x10^3/uL (140-400); RED BLOOD COUNT 4.54 x10^6/uL (4.30-5.70); RED CELL DISTRIBUTION WIDTH 13.1 % (11.5-14.5); WHITE BLOOD COUNT 5.5 x10^3/uL (4.0-11.0)
[2017-02-16] MEDS: MORPHINE SULFATE 4 MG/ML DISP.SYRIN. IV PRN ×2 (11:14→15:25)
[2017-02-16] MEDS: VANCOMYCIN 1.25 GM in IV DEXTROSE 5% 250 ML IV SCH (13:33)
--- NOTE | 2017-02-16 14:25 | PDOC ---
PROGRESS NOTES Chief Complaint Chief Complaint L LE cellulitis ASSESSMENT AND PLAN: 1. Cellulitis L pierre with possible abcess vs hematoma: s/p debridement today. cont vanco 2. Pain control: IV/PO narcotics available 3. Anxiety: cont home xanax 4. adult ADHD, he reports he cannot concentrate on what the doctors are saying without it, no longer any on formulary, he will need to provide his own 5. BPH: flomax started History of Present Illness History of Present Illness post hematoma evacuation. c/o pain, drowsy Vitals Vitals Vital Signs Date Time Temp Pulse Resp B/P (MAP) Pulse Ox O2 Delivery O2 Flow Rate FiO2 02/16/17 11:14 95 Room Air 2.0 02/16/17 11:00 97.9 83 20 109/74 (86) 97.9 Physical Exam General: Cooperative, No acute distress, Other (drowsy) Heart: Regular rate Lungs: Clear Abdomen: Normal bowel sounds, Soft, No tenderness Extremities: No clubbing, No cyanosis, Other (pierre with pressure dressing) Skin: Other (surrounding erythema, ) Labs LABS Laboratory Tests Test 02/15/17 19:00 02/16/17 10:25 Urine Collection Type Unknown Urine Color Straw Urine Clarity Clear Urine pH 6.5 Urine Specific [place] 1.010 Urine Protein Negative mg/dL (NEG-TRACE) Urine Glucose (UA) Negative mg/dL (NEG) Urine Ketones (Stick) Negative mg/dL (NEG) Urine Blood Negative (NEG) Urine Nitrite Negative (NEG) Urine Bilirubin Negative (NEG) Urine Urobilinogen Dipstick 0.2 mg/dL (0.2 mg/dL) Urine Leukocyte Esterase Negative (NEG) Urine RBC 0 /HPF (0-2) Urine WBC Rare /HPF (0-4) Urine Squamous Epithelial Cells None /LPF Urine Bacteria 0 /HPF (0-FEW) White Blood Count 5.5 x10^3/uL (4.0-11.0) Red Blood Count 4.54 x10^6/uL (4.30-5.70) Hemoglobin 13.9 g/dL (13.0-17.5) Hematocrit 41.0 % (39.0-53.0) Mean Corpuscular Volume 90 fL (79-100) Mean Corpuscular Hemoglobin 31 pg (25-35) Mean Corpuscular Hemoglobin Concent 34 g/dL (31-37) Red Cell Distribution Width 13.1 % (11.5-14.5) Platelet Count 345 x10^3/uL (140-400) Neutrophils (%) (Auto) 53 % (31-73) Lymphocytes (%) (Auto) 34 % (24-48) Monocytes (%) (Auto) 10 % (0-9) Eosinophils (%) (Auto) 4 % (0-3) Basophils (%) (Auto) 1 % (0-3) Neutrophils # (Auto) 2.9 x10^3uL (1.8-7.7) Lymphocytes # (Auto) 1.8 x10^3/uL (1.0-4.8) Monocytes # (Auto) 0.5 x10^3/uL (0.0-1.1) Eosinophils # (Auto) 0.2 x10^3/uL (0.0-0.7) Basophils # (Auto) 0.0 x10^3/uL (0.0-0.2) Sodium Level 140 mmol/L (136-145) Potassium Level 4.3 mmol/L (3.5-5.1) Chloride Level 103 mmol/L (98-107) Carbon Dioxide Level 30 mmol/L (21-32) Anion Gap 7 (6-14) Blood Urea Nitrogen 13 mg/dL (8-26) Creatinine 0.8 mg/dL (0.7-1.3) Estimated GFR (Cockcroft-Gault) 103.6 Glucose Level 95 mg/dL (70-99) Calcium Level 8.9 mg/dL (8.5-10.1) Vancomycin Level Trough 8.7 mcg/mL (10.0-20.0) Vancomycin Last Dose Date 02/15/17 Vancomycin Last Dose Time 2300 ABIOLA LAYNE MD Feb 16, 2017 14:25
[2017-02-16 15:00] VITALS: BP 112/69
[2017-02-16] MEDS: VANCOMYCIN PER PHARMACY MC PRN (15:38)
--- NOTE | 2017-02-16 15:39 | PDOC ---
Infectious Disease Note Subjective Subjective s/p surgery earlier c/o pain ROS ROS GEN: Denies fevers, chills, sweats CV: Denies chest pain RESP: Denies shortness of air, cough GI: Denies n/v/d Vital Sign Vital Signs Vital Signs Date Time Temp Pulse Resp B/P (MAP) Pulse Ox O2 Delivery O2 Flow Rate FiO2 02/16/17 15:25 99 Room Air 2.0 02/16/17 15:00 97.9 89 20 112/69 (83) 97.9 Physical Exam PHYSICAL EXAM GENERAL: NAD, Alert HEENT: PERRL, OC/OP NECK: Supple, no JVD, no LN LUNGS: Clear HEART: S1S2, no gallop, no murmur ABD: Soft, NT, no organomegaly, no rebound EXT: No edema, no cyanosis [employer]PER[employer] SUPERINTENDENT: Alert, oriented x 3, no focal neurologic deficit SKIN: No rash IV: ok Labs Lab Laboratory Tests Test 02/15/17 19:00 02/16/17 10:25 Urine Collection Type Unknown Urine Color Straw Urine Clarity Clear Urine pH 6.5 Urine Specific [place] 1.010 Urine Protein Negative mg/dL (NEG-TRACE) Urine Glucose (UA) Negative mg/dL (NEG) Urine Ketones (Stick) Negative mg/dL (NEG) Urine Blood Negative (NEG) Urine Nitrite Negative (NEG) Urine Bilirubin Negative (NEG) Urine Urobilinogen Dipstick 0.2 mg/dL (0.2 mg/dL) Urine Leukocyte Esterase Negative (NEG) Urine RBC 0 /HPF (0-2) Urine WBC Rare /HPF (0-4) Urine Squamous Epithelial Cells None /LPF Urine Bacteria 0 /HPF (0-FEW) White Blood Count 5.5 x10^3/uL (4.0-11.0) Red Blood Count 4.54 x10^6/uL (4.30-5.70) Hemoglobin 13.9 g/dL (13.0-17.5) Hematocrit 41.0 % (39.0-53.0) Mean Corpuscular Volume 90 fL (79-100) Mean Corpuscular Hemoglobin 31 pg (25-35) Mean Corpuscular Hemoglobin Concent 34 g/dL (31-37) Red Cell Distribution Width 13.1 % (11.5-14.5) Platelet Count 345 x10^3/uL (140-400) Neutrophils (%) (Auto) 53 % (31-73) Lymphocytes (%) (Auto) 34 % (24-48) Monocytes (%) (Auto) 10 % (0-9) Eosinophils (%) (Auto) 4 % (0-3) Basophils (%) (Auto) 1 % (0-3) Neutrophils # (Auto) 2.9 x10^3uL (1.8-7.7) Lymphocytes # (Auto) 1.8 x10^3/uL (1.0-4.8) Monocytes # (Auto) 0.5 x10^3/uL (0.0-1.1) Eosinophils # (Auto) 0.2 x10^3/uL (0.0-0.7) Basophils # (Auto) 0.0 x10^3/uL (0.0-0.2) Sodium Level 140 mmol/L (136-145) Potassium Level 4.3 mmol/L (3.5-5.1) Chloride Level 103 mmol/L (98-107) Carbon Dioxide Level 30 mmol/L (21-32) Anion Gap 7 (6-14) Blood Urea Nitrogen 13 mg/dL (8-26) Creatinine 0.8 mg/dL (0.7-1.3) Estimated GFR (Cockcroft-Gault) 103.6 Glucose Level 95 mg/dL (70-99) Calcium Level 8.9 mg/dL (8.5-10.1) Vancomycin Level Trough 8.7 mcg/mL (10.0-20.0) Vancomycin Last Dose Date 02/15/17 Vancomycin Last Dose Time 2300 Micro left leg, 02/15. GRAM STAIN Final WBCS NONE SEEN ORGANISMS NONE SEEN Objective Assessment LLE cellulitis - took 5 days of Bactrim prior to admit to [facility] ? LLE abscess vs possible hematoma. Has stopped improving- no wound cults - d/w micro at [facility]; s/p I and D, deep hematoma 02/16 ? H/o MRSA ADHD Plan Plan of Care Vanc Trough 8.7 f/u am labs and cultures EROS SPEAR APRN Feb 16, 2017 15:39
[2017-02-16 19:00] VITALS: BP 114/74
[2017-02-16] MEDS: LACTOBACILLUS RHAMNOSUS GG 1 CAPSULE. PO SCH (20:26)
[2017-02-16] MEDS: TAMSULOSIN 0.4 MG CAP.ER.24H. PO SCH (20:26)
[2017-02-16] MEDS: QUEtiapine 25 MG TABLET. PO SCH (20:35)
[2017-02-16] MEDS: ALPRAZolam 1 MG TABLET PO PRN (20:36)
[2017-02-16] MEDS: VANCOMYCIN 1 GM in IV DEXTROSE 5% 250 ML IV SCH (22:02)
[2017-02-16 22:53] VITALS: BP 119/84
[2017-02-17 03:00] VITALS: BP 119/79
[2017-02-17 05:41] LABS: BASO % 1 % (0-3); EOS % 3 % (0-3); HEMOGLOBIN 14.1 g/dL (13.0-17.5); LYMPH # 1.8 x10^3/uL (1.0-4.8); LYMPH % 24 % (24-48); MEAN CORPUSCULAR HEMOGLOBIN 31 pg (25-35); MEAN CORPUSCULAR HGB CONC 34 g/dL (31-37); MEAN CORPUSCULAR VOLUME 90 fL (79-100); MONO % 11 % (0-9); NEUT % 62 % (31-73); PLATELET COUNT 354 x10^3/uL (140-400); RED BLOOD COUNT 4.54 x10^6/uL (4.30-5.70); RED CELL DISTRIBUTION WIDTH 13.1 % (11.5-14.5); WHITE BLOOD COUNT 7.6 x10^3/uL (4.0-11.0)
[2017-02-17] MEDS: VANCOMYCIN 1 GM in IV DEXTROSE 5% 250 ML IV SCH ×3 (05:58→22:00)
[2017-02-17] MEDS ORDERED: MAGNESIUM HYDROXIDE 2,400 MG/30 ML ORAL.SUSP. PO PRN (06:00)
[2017-02-17] MEDS: HYDROcodone/APAP 10/325 1 TAB TABLET PO PRN (06:07)
[2017-02-17 06:12] LABS: CALCIUM 9.2 mg/dL (8.5-10.1); CREATININE 0.8 mg/dL (0.7-1.3); GFR 103.6; POTASSIUM 3.8 mmol/L (3.5-5.1)
[2017-02-17 07:00] VITALS: BP 109/74
[2017-02-17] MEDS: SENNOSIDES/DOCUSATE 8.6/50MG TABLET. PO SCH (08:22)
[2017-02-17] MEDS: LACTOBACILLUS RHAMNOSUS GG 1 CAPSULE. PO SCH ×2 (08:22→21:59)
--- NOTE | 2017-02-17 09:46 | PDOC ---
PROGRESS NOTES Chief Complaint Chief Complaint L LE cellulitis ASSESSMENT AND PLAN: 1. Cellulitis L pierre with possible abcess vs hematoma: s/p debridement on . wound care as per ortho. cont vanco 2. Pain control: IV/PO narcotics available; d/w pt: [employer] not working for him; trial oxy 5-10 vs PO morphine 3. Anxiety: cont home xanax 4. adult ADHD: on adderall (home supply) 5. BPH: flomax started History of Present Illness History of Present Illness unable to wilda bare due to pain. no other c/o Vitals Vitals Vital Signs Date Time Temp Pulse Resp B/P (MAP) Pulse Ox O2 Delivery O2 Flow Rate FiO2 02/17/17 07:07 97 Room Air 2.0 02/17/17 07:00 97.7 65 19 109/74 (86) 97.7 Physical Exam General: Cooperative, No acute distress, Other (drowsy) Heart: Regular rate Lungs: Clear Abdomen: Normal bowel sounds, Soft, No tenderness Extremities: No clubbing, No cyanosis, Other (pierre with pressure dressing) Skin: Other (surrounding erythema, ) Labs LABS Laboratory Tests Test 02/16/17 10:25 02/17/17 05:10 White Blood Count 5.5 x10^3/uL (4.0-11.0) 7.6 x10^3/uL (4.0-11.0) Red Blood Count 4.54 x10^6/uL (4.30-5.70) 4.54 x10^6/uL (4.30-5.70) Hemoglobin 13.9 g/dL (13.0-17.5) 14.1 g/dL (13.0-17.5) Hematocrit 41.0 % (39.0-53.0) 41.0 % (39.0-53.0) Mean Corpuscular Volume 90 fL (79-100) 90 fL (79-100) Mean Corpuscular Hemoglobin 31 pg (25-35) 31 pg (25-35) Mean Corpuscular Hemoglobin Concent 34 g/dL (31-37) 34 g/dL (31-37) Red Cell Distribution Width 13.1 % (11.5-14.5) 13.1 % (11.5-14.5) Platelet Count 345 x10^3/uL (140-400) 354 x10^3/uL (140-400) Neutrophils (%) (Auto) 53 % (31-73) 62 % (31-73) Lymphocytes (%) (Auto) 34 % (24-48) 24 % (24-48) Monocytes (%) (Auto) 10 % (0-9) 11 % (0-9) Eosinophils (%) (Auto) 4 % (0-3) 3 % (0-3) Basophils (%) (Auto) 1 % (0-3) 1 % (0-3) Neutrophils # (Auto) 2.9 x10^3uL (1.8-7.7) 4.7 x10^3uL (1.8-7.7) Lymphocytes # (Auto) 1.8 x10^3/uL (1.0-4.8) 1.8 x10^3/uL (1.0-4.8) Monocytes # (Auto) 0.5 x10^3/uL (0.0-1.1) 0.8 x10^3/uL (0.0-1.1) Eosinophils # (Auto) 0.2 x10^3/uL (0.0-0.7) 0.2 x10^3/uL (0.0-0.7) Basophils # (Auto) 0.0 x10^3/uL (0.0-0.2) 0.0 x10^3/uL (0.0-0.2) Sodium Level 140 mmol/L (136-145) 138 mmol/L (136-145) Potassium Level 4.3 mmol/L (3.5-5.1) 3.8 mmol/L (3.5-5.1) Chloride Level 103 mmol/L (98-107) 102 mmol/L (98-107) Carbon Dioxide Level 30 mmol/L (21-32) 29 mmol/L (21-32) Anion Gap 7 (6-14) 7 (6-14) Blood Urea Nitrogen 13 mg/dL (8-26) 12 mg/dL (8-26) Creatinine 0.8 mg/dL (0.7-1.3) 0.8 mg/dL (0.7-1.3) Estimated GFR (Cockcroft-Gault) 103.6 103.6 Glucose Level 95 mg/dL (70-99) 96 mg/dL (70-99) Calcium Level 8.9 mg/dL (8.5-10.1) 9.2 mg/dL (8.5-10.1) Vancomycin Level Trough 8.7 mcg/mL (10.0-20.0) Vancomycin Last Dose Date 02/15/17 Vancomycin Last Dose Time 2300 Comment Review of Relevant I have reviewed the following items lisa (where applicable) has been applied. Labs Laboratory Tests Test 02/15/17 19:00 02/16/17 10:25 02/17/17 05:10 Urine Collection Type Unknown Urine Color Straw Urine Clarity Clear Urine pH 6.5 Urine Specific [place] 1.010 Urine Protein Negative mg/dL (NEG-TRACE) Urine Glucose (UA) Negative mg/dL (NEG) Urine Ketones (Stick) Negative mg/dL (NEG) Urine Blood Negative (NEG) Urine Nitrite Negative (NEG) Urine Bilirubin Negative (NEG) Urine Urobilinogen Dipstick 0.2 mg/dL (0.2 mg/dL) Urine Leukocyte Esterase Negative (NEG) Urine RBC 0 /HPF (0-2) Urine WBC Rare /HPF (0-4) Urine Squamous Epithelial Cells None /LPF Urine Bacteria 0 /HPF (0-FEW) White Blood Count 5.5 x10^3/uL (4.0-11.0) 7.6 x10^3/uL (4.0-11.0) Red Blood Count 4.54 x10^6/uL (4.30-5.70) 4.54 x10^6/uL (4.30-5.70) Hemoglobin 13.9 g/dL (13.0-17.5) 14.1 g/dL (13.0-17.5) Hematocrit 41.0 % (39.0-53.0) 41.0 % (39.0-53.0) Mean Corpuscular Volume 90 fL (79-100) 90 fL (79-100) Mean Corpuscular Hemoglobin 31 pg (25-35) 31 pg (25-35) Mean Corpuscular Hemoglobin Concent 34 g/dL (31-37) 34 g/dL (31-37) Red Cell Distribution Width 13.1 % (11.5-14.5) 13.1 % (11.5-14.5) Platelet Count 345 x10^3/uL (140-400) 354 x10^3/uL (140-400) Neutrophils (%) (Auto) 53 % (31-73) 62 % (31-73) Lymphocytes (%) (Auto) 34 % (24-48) 24 % (24-48) Monocytes (%) (Auto) 10 % (0-9) 11 % (0-9) Eosinophils (%) (Auto) 4 % (0-3) 3 % (0-3) Basophils (%) (Auto) 1 % (0-3) 1 % (0-3) Neutrophils # (Auto) 2.9 x10^3uL (1.8-7.7) 4.7 x10^3uL (1.8-7.7) Lymphocytes # (Auto) 1.8 x10^3/uL (1.0-4.8) 1.8 x10^3/uL (1.0-4.8) Monocytes # (Auto) 0.5 x10^3/uL (0.0-1.1) 0.8 x10^3/uL (0.0-1.1) Eosinophils # (Auto) 0.2 x10^3/uL (0.0-0.7) 0.2 x10^3/uL (0.0-0.7) Basophils # (Auto) 0.0 x10^3/uL (0.0-0.2) 0.0 x10^3/uL (0.0-0.2) Sodium Level 140 mmol/L (136-145) 138 mmol/L (136-145) Potassium Level 4.3 mmol/L (3.5-5.1) 3.8 mmol/L (3.5-5.1) Chloride Level 103 mmol/L (98-107) 102 mmol/L (98-107) Carbon Dioxide Level 30 mmol/L (21-32) 29 mmol/L (21-32) Anion Gap 7 (6-14) 7 (6-14) Blood Urea Nitrogen 13 mg/dL (8-26) 12 mg/dL (8-26) Creatinine 0.8 mg/dL (0.7-1.3) 0.8 mg/dL (0.7-1.3) Estimated GFR (Cockcroft-Gault) 103.6 103.6 Glucose Level 95 mg/dL (70-99) 96 mg/dL (70-99) Calcium Level 8.9 mg/dL (8.5-10.1) 9.2 mg/dL (8.5-10.1) Vancomycin Level Trough 8.7 mcg/mL (10.0-20.0) Vancomycin Last Dose Date 02/15/17 Vancomycin Last Dose Time 2300 Laboratory Tests Test 02/16/17 10:25 02/17/17 05:10 White Blood Count 5.5 x10^3/uL (4.0-11.0) 7.6 x10^3/uL (4.0-11.0) Red Blood Count 4.54 x10^6/uL (4.30-5.70) 4.54 x10^6/uL (4.30-5.70) Hemoglobin 13.9 g/dL (13.0-17.5) 14.1 g/dL (13.0-17.5) Hematocrit 41.0 % (39.0-53.0) 41.0 % (39.0-53.0) Mean Corpuscular Volume 90 fL (79-100) 90 fL (79-100) Mean Corpuscular Hemoglobin 31 pg (25-35) 31 pg (25-35) Mean Corpuscular Hemoglobin Concent 34 g/dL (31-37) 34 g/dL (31-37) Red Cell Distribution Width 13.1 % (11.5-14.5) 13.1 % (11.5-14.5) Platelet Count 345 x10^3/uL (140-400) 354 x10^3/uL (140-400) Neutrophils (%) (Auto) 53 % (31-73) 62 % (31-73) Lymphocytes (%) (Auto) 34 % (24-48) 24 % (24-48) Monocytes (%) (Auto) 10 % (0-9) 11 % (0-9) Eosinophils (%) (Auto) 4 % (0-3) 3 % (0-3) Basophils (%) (Auto) 1 % (0-3) 1 % (0-3) Neutrophils # (Auto) 2.9 x10^3uL (1.8-7.7) 4.7 x10^3uL (1.8-7.7) Lymphocytes # (Auto) 1.8 x10^3/uL (1.0-4.8) 1.8 x10^3/uL (1.0-4.8) Monocytes # (Auto) 0.5 x10^3/uL (0.0-1.1) 0.8 x10^3/uL (0.0-1.1) Eosinophils # (Auto) 0.2 x10^3/uL (0.0-0.7) 0.2 x10^3/uL (0.0-0.7) Basophils # (Auto) 0.0 x10^3/uL (0.0-0.2) 0.0 x10^3/uL (0.0-0.2) Sodium Level 140 mmol/L (136-145) 138 mmol/L (136-145) Potassium Level 4.3 mmol/L (3.5-5.1) 3.8 mmol/L (3.5-5.1) Chloride Level 103 mmol/L (98-107) 102 mmol/L (98-107) Carbon Dioxide Level 30 mmol/L (21-32) 29 mmol/L (21-32) Anion Gap 7 (6-14) 7 (6-14) Blood Urea Nitrogen 13 mg/dL (8-26) 12 mg/dL (8-26) Creatinine 0.8 mg/dL (0.7-1.3) 0.8 mg/dL (0.7-1.3) Estimated GFR (Cockcroft-Gault) 103.6 103.6 Glucose Level 95 mg/dL (70-99) 96 mg/dL (70-99) Calcium Level 8.9 mg/dL (8.5-10.1) 9.2 mg/dL (8.5-10.1) Vancomycin Level Trough 8.7 mcg/mL (10.0-20.0) Vancomycin Last Dose Date 02/15/17 Vancomycin Last Dose Time 2300 Microbiology 02/15/17 Gram Stain - Final, Complete Medications Current Medications Acetaminophen/ Hydrocodone Bitart (Lortab 10) 1 tab PRN Q6HRS PRN PO PAIN Last administered on 02/17/17 06:07; Start 02/14/17 at 21:45 Quetiapine Fumarate (SEROquel) 25 mg QHS PO ; Start 02/14/17 at 22:00 Sildenafil Citrate (Revatio) 25 mg DAILY PO ; Start 02/15/17 at 09:00; Status UNV Alprazolam (Xanax) 2 mg PRN QHS PRN PO ANXIETY / AGITATION Last administered on 02/16/17 20:36; Start 02/14/17 at 22:00 Morphine Sulfate 4 mg PRN Q2HR PRN IV PAIN Last administered on 02/16/17 15: 25; Start 02/14/17 at 22:30; Stop 02/16/17 at 15:43; Status DC Diphenhydramine HCl (Benadryl) 25 mg PRN Q6HRS PRN IVP ITCHING; Start at 22:30 Vancomycin HCl (Vanco Per Pharmacy) 1 each PRN DAILY PRN MC SEE COMMENTS Last administered on 02/16/17 15:38; Start 02/14/17 at 23:00 Non-Formulary Medication 1 ea BID PO ; Start 02/15/17 at 09:00; Status UNV Vancomycin HCl 1.25 gm/Dextrose 250 ml @ 167 mls/hr Q12H IV Last administered on 02/14/17 23:20; Start 02/14/17 at 23:00; Stop 02/14/17 at 23:45; Status DC Alprazolam (Xanax) 1 mg PRN Q6HRS PRN PO ANXIETY / AGITATION Last administered on 02/15/17 18:36; Start 02/14/17 at 23:15 Vancomycin HCl 1 each 1X ONCE MC Last administered on 02/15/17 05:00; Start 02/15/17 at 05:00; Stop 02/15/17 at 05:01; Status DC Vancomycin HCl 1.25 gm/Dextrose 250 ml @ 167 mls/hr Q12H IV Last administered on 02/16/17 13:33; Start 02/15/17 at 11:00; Stop 02/16/17 at 15:47; Status DC Vancomycin HCl 1 each 1X ONCE MC Last administered on 02/16/17 10:30; Start 02/16/17 at 10:30; Stop 02/16/17 at 10:31; Status DC Tetanus/ Diphtheria Toxoids (Tenivac Syringe) 0.5 ml ONCE ONCE VAX IM Last administered on 02/15/17t 13:33; Start 02/15/17 at 13:00; Stop 02/15/17 at 13 :01; Status DC Lidocaine/Sodium Bicarbonate (Buffered Lidocaine 1%) 20 ml 1X ONCE IJ ; Start 02/15/17 at 15:00; Stop 02/15/17 at 15:00; Status DC Lidocaine HCl 20 ml 1X ONCE IJ ; Start 02/15/17 at 15:15; Stop 02/15/17 at 15 :16; Status DC Acetaminophen (Tylenol) 650 mg PRN Q6HRS PRN PO FEVER; Start 02/15/17 at 16:15 Ondansetron HCl (Zofran) 4 mg PRN Q6HRS PRN IV NAUSEA/VOMITING; Start at 16:15; Stop 02/16/17 at 15:44; Status DC Morphine Sulfate 2 mg PRN Q2HR PRN IV PAIN; Start 02/15/17 at 16:15; Stop at 15:43; Status DC Tramadol HCl (Ultram) 50 mg PRN Q6HRS PRN PO PAIN; Start 02/15/17 at 16:15 Hydralazine HCl (Apresoline Inj) 10 mg PRN Q4HRS PRN IVP ELEVATED BP, SEE COMMENTS; Start 02/15/17 at 16:15 Docusate Sodium (Colace) 100 mg PRN DAILY PRN PO CONSTIPATION; Start 02/15/17 at 16:15 Acetaminophen (Tylenol) 650 mg PRN Q6HRS PRN PO FEVER; Start 02/15/17 at 16:15 ; Status UNV Ondansetron HCl (Zofran) 4 mg PRN Q6HRS PRN IV NAUSEA/VOMITING; Start at 16:15; Status UNV Morphine Sulfate 2 mg PRN Q2HR PRN IV PAIN; Start 02/15/17 at 16:15; Status UNV Tramadol HCl (Ultram) 50 mg PRN Q6HRS PRN PO PAIN; Start 02/15/17 at 16:15; Status UNV Hydralazine HCl (Apresoline Inj) 10 mg PRN Q4HRS PRN IVP ELEVATED BP, SEE COMMENTS; Start 02/15/17 at 16:15; Status UNV Docusate Sodium (Colace) 100 mg PRN DAILY PRN PO CONSTIPATION; Start 02/15/17 at 16:15; Status UNV Tamsulosin HCl (Flomax) 0.4 mg QHS PO Last administered on 02/16/17t 20:26; Start 02/15/17 at 21:00 Ondansetron HCl (Zofran) 4 mg PRN Q6HRS PRN IV NAUSEA/VOMITING; Start at 07:30; Stop 02/16/17 at 15:44; Status DC Fentanyl Citrate (Fentanyl 2ml Vial) 25 mcg PRN Q5MIN PRN IV MILD PAIN; Start 02/16/17 at 07:30; Stop 02/17/17 at 07:29; Status DC Fentanyl Citrate (Fentanyl 2ml Vial) 50 mcg PRN Q5MIN PRN IV MODERATE PAIN; Start 02/16/17 at 07:30; Stop 02/17/17 at 07:29; Status DC Morphine Sulfate 1 mg PRN Q10MIN PRN IV SEVERE PAIN Last administered on t 09:43; Start 02/16/17 at 07:30; Stop 02/16/17 at 15:43; Status DC Ringer's Solution 1,000 ml @ 30 mls/hr Q24H IV ; Start 02/16/17 at 07:22; Stop 02/16/17 at 17:14; Status DC Lidocaine HCl (Xylocaine-Mpf 1% Vial) 2 ml 1X PRN PRN ID IV START; Start 02/16 at 07:30; Stop 02/17/17 at 07:29; Status DC Hydromorphone HCl (Dilaudid) 0.5 mg PRN Q10MIN PRN IV SEV PAIN, Second choice; Start 02/16/17 at 07:30; Stop 02/17/17 at 07:29; Status DC Prochlorperazine Edisylate (Compazine) 5 mg PACU PRN PRN IV NAUSEA, MRX1; Start 02/16/17 at 07:30; Stop 02/17/17 at 07:29; Status DC Propofol 20 ml @ As Directed STK-MED ONCE IV ; Start 02/16/17 at 08:39; Stop 02/16/17 at 08:40; Status DC Fentanyl Citrate (Fentanyl 2ml Vial) 100 mcg STK-MED ONCE .ROUTE ; Start at 08:39; Stop 02/16/17 at 08:40; Status DC Midazolam HCl (Versed) 2 mg STK-MED ONCE .ROUTE ; Start 02/16/17 at 08:39; Stop 02/16/17 at 08:40; Status DC Cefazolin Sodium/ Dextrose 50 ml @ As Directed STK-MED ONCE IV ; Start at 08:56; Stop 02/16/17 at 08:57; Status DC Propofol 20 ml @ As Directed STK-MED ONCE IV ; Start 02/16/17 at 09:10; Stop 02/16/17 at 09:11; Status DC Bupivacaine HCl/ Epinephrine Bitart (Marcaine-Epi 0.25%-1:260016) 50 ml STK-MED ONCE .ROUTE Last administered on 02/16/17t 09:13; Start 02/16/17 at 09:14; Stop 02/16/17 at 09:15; Status DC Morphine Sulfate 2 mg STK-MED ONCE .ROUTE ; Start 02/16/17 at 09:31; Stop at 09:32; Status DC Oxycodone HCl (Roxicodone) 5 mg PRN Q3HRS PRN PO PAIN; Start 02/16/17 at 09:45 Morphine Sulfate 2 mg PRN Q1HR PRN IV PAIN; Start 02/16/17 at 09:45 Senna/Docusate Sodium (Senna Plus) 1 tab DAILY PO Last administered on t 08:22; Start 02/17/17 at 09:00 Polyethylene Glycol (miraLAX PACKET) 17 gm PRN DAILY PRN PO CONSTIPATION; Start 02/16/17 at 09:45 Ondansetron HCl (Zofran) 4 mg PRN Q4HRS PRN IV NAUSEA/VOMITING; Start at 09:45 Magnesium Hydroxide (Milk Of Magnesia) 2,400 mg 1X PRN PRN PO CONSTIPATION; Start 02/17/17 at 06:00; Stop 02/18/17 at 05:59 Bisacodyl (Dulcolax Supp) 10 mg 1X PRN PRN [place] CONSTIPATION; Start 02/17/17 at 16:00; Stop 02/18/17 at 15:59 Acetaminophen/ Hydrocodone Bitart (Lortab 7.5/325) 1 tab PRN Q4HRS PRN PO PAIN ; Start 02/16/17 at 09:45 Morphine Sulfate 4 mg PRN Q2HR PRN IV PAIN Last administered on 02/16/17 20: 37; Start 02/16/17 at 09:45 Acetaminophen/ Hydrocodone Bitart (Lortab 7.5/325) 2 tab PRN Q4HRS PRN PO PAIN ; Start 02/16/17 at 09:45 Dextrose (Dextrose 50%-Water Syringe) 12.5 gm PRN Q15MIN PRN IV SEE COMMENTS; Start 02/16/17 at 09:45 Cefazolin Sodium/ Dextrose 50 ml @ 100 mls/hr Q6H IV Last administered on 03:18; Start 02/16/17 at 15:00; Stop 02/17/17 at 03:29; Status DC Vancomycin HCl 1 gm/Dextrose 250 ml @ 250 mls/hr Q8HRS IV Last administered on 02/17/17 05:58; Start 02/16/17 at 22:00 Lactobacillus Rhamnosus (Culturelle) 1 cap BID PO Last administered on 08:22; Start 02/16/17 at 21:00 Active Scripts Active Reported Sildenafil (Sildenafil Citrate) 20 Mg Tablet 25 Mg PO DAILY Seroquel (Quetiapine Fumarate) 25 Mg Tablet 1 Tab PO QHS Mupirocin Ointment (Mupirocin) 22 Gm Oint...g. 1 Jhon TP BID Amphetamine Salts 15 Mg Tab (Dextroamphetamine/Amphetamine) 15 Mg Tablet 15 Mg PO Alprazolam 2 Mg Tablet 2 Mg PO QHS PRN Vitals/I & O Vital Sign - Last 24 Hours 02/16/17 02/16/17 02/16/17 02/16/17 09:43 09:55 10:13 11:00 Temp 98.1 97.9 98.1 97.9 Pulse 78 83 Resp 16 16 20 B/P (MAP) 97/67 109/74 (86) Pulse Ox 95 95 95 O2 Delivery Room Air Room Air Room Air Room Air O2 Flow Rate 2.0 02/16/17 02/16/17 02/16/17 02/16/17 11:14 11:44 15:00 15:25 Temp 97.9 97.9 Pulse 89 Resp 20 B/P (MAP) 112/69 (83) Pulse Ox 95 95 99 99 O2 Delivery Room Air Room Air Room Air Room Air O2 Flow Rate 2.0 2.0 2.0 02/16/17 02/16/17 02/16/17 02/16/17 19:00 20:37 21:07 22:53 Temp 98.1 99.0 98.1 99.0 Pulse 79 84 Resp 18 20 18 15 B/P (MAP) 114/74 (87) 119/84 (96) Pulse Ox 93 93 93 96 O2 Delivery Room Air Room Air Room Air Room Air 02/17/17 02/17/17 02/17/17 02/17/17 03:00 06:07 07:00 07:07 Temp 97.9 97.7 97.9 97.7 Pulse 85 65 Resp 18 19 B/P (MAP) 119/79 (92) 109/74 (86) Pulse Ox 95 97 97 O2 Delivery Room Air Room Air Room Air Room Air O2 Flow Rate 2.0 Intake and Output 02/16/17 02/16/17 02/17/17 15:00 23:00 07:00 Intake Total 650 ml 2490 ml Output Total 500 ml 2350 ml Balance 150 ml 140 ml ABIOLA LAYNE MD Feb 17, 2017 09:46
--- NOTE | 2017-02-17 09:56 | PDOC ---
PROGRESS NOTES Subjective Subjective Doing better today, but states the leg is painful while walking. Objective Vital Signs Vital Signs Date Time Temp Pulse Resp B/P (MAP) Pulse Ox O2 Delivery O2 Flow Rate FiO2 02/17/17 07:07 97 Room Air 2.0 02/17/17 07:00 97.7 65 19 109/74 (86) 97.7 Physical Exam Lying in bed. Postop dressing dry and intact. Calf soft and nontender with a negative Teddy's sign. Good dorsiflexion and plantarflexion with no evidence of neurovascular injury. Peripheral pulses and light touch sensation intact. Labs Laboratory Tests Test 02/15/17 19:00 02/16/17 10:25 02/17/17 05:10 Urine Collection Type Unknown Urine Color Straw Urine Clarity Clear Urine pH 6.5 Urine Specific [place] 1.010 Urine Protein Negative mg/dL (NEG-TRACE) Urine Glucose (UA) Negative mg/dL (NEG) Urine Ketones (Stick) Negative mg/dL (NEG) Urine Blood Negative (NEG) Urine Nitrite Negative (NEG) Urine Bilirubin Negative (NEG) Urine Urobilinogen Dipstick 0.2 mg/dL (0.2 mg/dL) Urine Leukocyte Esterase Negative (NEG) Urine RBC 0 /HPF (0-2) Urine WBC Rare /HPF (0-4) Urine Squamous Epithelial Cells None /LPF Urine Bacteria 0 /HPF (0-FEW) White Blood Count 5.5 x10^3/uL (4.0-11.0) 7.6 x10^3/uL (4.0-11.0) Red Blood Count 4.54 x10^6/uL (4.30-5.70) 4.54 x10^6/uL (4.30-5.70) Hemoglobin 13.9 g/dL (13.0-17.5) 14.1 g/dL (13.0-17.5) Hematocrit 41.0 % (39.0-53.0) 41.0 % (39.0-53.0) Mean Corpuscular Volume 90 fL (79-100) 90 fL (79-100) Mean Corpuscular Hemoglobin 31 pg (25-35) 31 pg (25-35) Mean Corpuscular Hemoglobin Concent 34 g/dL (31-37) 34 g/dL (31-37) Red Cell Distribution Width 13.1 % (11.5-14.5) 13.1 % (11.5-14.5) Platelet Count 345 x10^3/uL (140-400) 354 x10^3/uL (140-400) Neutrophils (%) (Auto) 53 % (31-73) 62 % (31-73) Lymphocytes (%) (Auto) 34 % (24-48) 24 % (24-48) Monocytes (%) (Auto) 10 % (0-9) 11 % (0-9) Eosinophils (%) (Auto) 4 % (0-3) 3 % (0-3) Basophils (%) (Auto) 1 % (0-3) 1 % (0-3) Neutrophils # (Auto) 2.9 x10^3uL (1.8-7.7) 4.7 x10^3uL (1.8-7.7) Lymphocytes # (Auto) 1.8 x10^3/uL (1.0-4.8) 1.8 x10^3/uL (1.0-4.8) Monocytes # (Auto) 0.5 x10^3/uL (0.0-1.1) 0.8 x10^3/uL (0.0-1.1) Eosinophils # (Auto) 0.2 x10^3/uL (0.0-0.7) 0.2 x10^3/uL (0.0-0.7) Basophils # (Auto) 0.0 x10^3/uL (0.0-0.2) 0.0 x10^3/uL (0.0-0.2) Sodium Level 140 mmol/L (136-145) 138 mmol/L (136-145) Potassium Level 4.3 mmol/L (3.5-5.1) 3.8 mmol/L (3.5-5.1) Chloride Level 103 mmol/L (98-107) 102 mmol/L (98-107) Carbon Dioxide Level 30 mmol/L (21-32) 29 mmol/L (21-32) Anion Gap 7 (6-14) 7 (6-14) Blood Urea Nitrogen 13 mg/dL (8-26) 12 mg/dL (8-26) Creatinine 0.8 mg/dL (0.7-1.3) 0.8 mg/dL (0.7-1.3) Estimated GFR (Cockcroft-Gault) 103.6 103.6 Glucose Level 95 mg/dL (70-99) 96 mg/dL (70-99) Calcium Level 8.9 mg/dL (8.5-10.1) 9.2 mg/dL (8.5-10.1) Vancomycin Level Trough 8.7 mcg/mL (10.0-20.0) Vancomycin Last Dose Date 02/15/17 Vancomycin Last Dose Time 2300 Laboratory Tests Test 02/16/17 10:25 02/17/17 05:10 White Blood Count 5.5 x10^3/uL (4.0-11.0) 7.6 x10^3/uL (4.0-11.0) Red Blood Count 4.54 x10^6/uL (4.30-5.70) 4.54 x10^6/uL (4.30-5.70) Hemoglobin 13.9 g/dL (13.0-17.5) 14.1 g/dL (13.0-17.5) Hematocrit 41.0 % (39.0-53.0) 41.0 % (39.0-53.0) Mean Corpuscular Volume 90 fL (79-100) 90 fL (79-100) Mean Corpuscular Hemoglobin 31 pg (25-35) 31 pg (25-35) Mean Corpuscular Hemoglobin Concent 34 g/dL (31-37) 34 g/dL (31-37) Red Cell Distribution Width 13.1 % (11.5-14.5) 13.1 % (11.5-14.5) Platelet Count 345 x10^3/uL (140-400) 354 x10^3/uL (140-400) Neutrophils (%) (Auto) 53 % (31-73) 62 % (31-73) Lymphocytes (%) (Auto) 34 % (24-48) 24 % (24-48) Monocytes (%) (Auto) 10 % (0-9) 11 % (0-9) Eosinophils (%) (Auto) 4 % (0-3) 3 % (0-3) Basophils (%) (Auto) 1 % (0-3) 1 % (0-3) Neutrophils # (Auto) 2.9 x10^3uL (1.8-7.7) 4.7 x10^3uL (1.8-7.7) Lymphocytes # (Auto) 1.8 x10^3/uL (1.0-4.8) 1.8 x10^3/uL (1.0-4.8) Monocytes # (Auto) 0.5 x10^3/uL (0.0-1.1) 0.8 x10^3/uL (0.0-1.1) Eosinophils # (Auto) 0.2 x10^3/uL (0.0-0.7) 0.2 x10^3/uL (0.0-0.7) Basophils # (Auto) 0.0 x10^3/uL (0.0-0.2) 0.0 x10^3/uL (0.0-0.2) Sodium Level 140 mmol/L (136-145) 138 mmol/L (136-145) Potassium Level 4.3 mmol/L (3.5-5.1) 3.8 mmol/L (3.5-5.1) Chloride Level 103 mmol/L (98-107) 102 mmol/L (98-107) Carbon Dioxide Level 30 mmol/L (21-32) 29 mmol/L (21-32) Anion Gap 7 (6-14) 7 (6-14) Blood Urea Nitrogen 13 mg/dL (8-26) 12 mg/dL (8-26) Creatinine 0.8 mg/dL (0.7-1.3) 0.8 mg/dL (0.7-1.3) Estimated GFR (Cockcroft-Gault) 103.6 103.6 Glucose Level 95 mg/dL (70-99) 96 mg/dL (70-99) Calcium Level 8.9 mg/dL (8.5-10.1) 9.2 mg/dL (8.5-10.1) Vancomycin Level Trough 8.7 mcg/mL (10.0-20.0) Vancomycin Last Dose Date 02/15/17 Vancomycin Last Dose Time 2300 Assessment Assessment POD #1 I&D left leg hematoma Problems: Plan Plan of Care Continue POC. WBAT on LLE. So far, cultures are negative. Form an ortho standpoint, he may be discharged to home. Followup with [facility] in 10-14 days. BABITA KIM Feb 17, 2017 09:56
[2017-02-17] MEDS ORDERED: MORPHINE SULFATE 4 MG/ML DISP.SYRIN. IV PRN (10:00)
[2017-02-17] MEDS ORDERED: oxyCODONE IR 5 MG TABLET PO PRN ×2 (10:00→10:15)
[2017-02-17 10:48] VITALS: BP 106/64
[2017-02-17] MEDS: oxyCODONE IR 5 MG TABLET PO PRN ×3 (11:05→19:25)
[2017-02-17] MEDS: VANCOMYCIN PER PHARMACY MC PRN (13:35)
[2017-02-17 15:00] VITALS: BP 119/73
--- NOTE | 2017-02-17 15:40 | PDOC ---
Infectious Disease Note Subjective Subjective s/p surgery earlier c/o pain ROS ROS GEN: Denies fevers, chills, sweats HEENT: Denies blurred vision, sore throat CV: Denies chest pain RESP: Denies shortness of air, cough GI: Denies n/v/d NEURO: Denies confusion, dizziness MSK: Denies weakness, joint pain/swelling Vital Sign Vital Signs Vital Signs Date Time Temp Pulse Resp B/P (MAP) Pulse Ox O2 Delivery O2 Flow Rate FiO2 02/17/17 15:00 97.9 85 20 119/73 (88) 96 Room Air 97.9 02/17/17 12:05 2.0 Physical Exam PHYSICAL EXAM GENERAL: Propped up in bed, relaxed appearance, smiling LUNGS: Clear HEART: S1S2, no gallop, no murmur ABD: Soft, NT EXT: LLE 1+ edema, DP palpable, dressing recently changed 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, 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 3, no focal neurologic deficit SKIN: No rash Labs Lab Laboratory Tests Test 02/17/17 05:10 White Blood Count 7.6 x10^3/uL (4.0-11.0) Red Blood Count 4.54 x10^6/uL (4.30-5.70) Hemoglobin 14.1 g/dL (13.0-17.5) Hematocrit 41.0 % (39.0-53.0) Mean Corpuscular Volume 90 fL (79-100) Mean Corpuscular Hemoglobin 31 pg (25-35) Mean Corpuscular Hemoglobin Concent 34 g/dL (31-37) Red Cell Distribution Width 13.1 % (11.5-14.5) Platelet Count 354 x10^3/uL (140-400) Neutrophils (%) (Auto) 62 % (31-73) Lymphocytes (%) (Auto) 24 % (24-48) Monocytes (%) (Auto) 11 % (0-9) Eosinophils (%) (Auto) 3 % (0-3) Basophils (%) (Auto) 1 % (0-3) Neutrophils # (Auto) 4.7 x10^3uL (1.8-7.7) Lymphocytes # (Auto) 1.8 x10^3/uL (1.0-4.8) Monocytes # (Auto) 0.8 x10^3/uL (0.0-1.1) Eosinophils # (Auto) 0.2 x10^3/uL (0.0-0.7) Basophils # (Auto) 0.0 x10^3/uL (0.0-0.2) Sodium Level 138 mmol/L (136-145) Potassium Level 3.8 mmol/L (3.5-5.1) Chloride Level 102 mmol/L (98-107) Carbon Dioxide Level 29 mmol/L (21-32) Anion Gap 7 (6-14) Blood Urea Nitrogen 12 mg/dL (8-26) Creatinine 0.8 mg/dL (0.7-1.3) Estimated GFR (Cockcroft-Gault) 103.6 Glucose Level 96 mg/dL (70-99) Calcium Level 9.2 mg/dL (8.5-10.1) Micro left leg, 02/15. ANAEROBIC-AEROBIC CULTURE PENDING ANAEROBIC RES 1 PENDING AEROBIC CULT Preliminary Preliminary report AEROBIC RES 1 Preliminary Comment No growth after 18-24 hours. Objective Assessment LLE cellulitis - took 5 days of Bactrim prior to admit to [facility] ? LLE abscess vs possible hematoma. Has stopped improving- no wound cults - d/w micro at [facility]; s/p I and D, deep hematoma 02/16 -swab culture 02/15 no growth so far ? H/o MRSA ADHD Plan Plan of Care Vanc Trough 8.7 Post-op cefazolin per ortho, now off f/u am labs and cultures PT SEEN ,EXAMINED ,D/W [employer] CONTINUE SAME EROS SPEAR APRN Feb 17, 2017 15:40 MOODY VERDE MD Feb 17, 2017 18:45
[2017-02-17] MEDS ORDERED: BISACODYL 10 MG SUPP.RECT. PR PRN (16:00)
[2017-02-17 19:00] VITALS: BP 100/65
[2017-02-17] MEDS: ALPRAZolam 1 MG TABLET PO PRN ×2 (19:25→21:59)
[2017-02-17] MEDS: TAMSULOSIN 0.4 MG CAP.ER.24H. PO SCH (21:59)
[2017-02-17] MEDS: QUEtiapine 25 MG TABLET. PO SCH (21:59)
[2017-02-17 23:00] VITALS: BP 112/76
--- NOTE | 2017-02-18 00:42 | CONS ---
DATE OF CONSULTATION: 02/15/2017 PATIENT'S ROOM: 530 REQUESTING PHYSICIAN: Dr. Rosario. REASON FOR CONSULTATION: Cellulitis. 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 He states about 2 weeks ago, he bumped his left leg on a concrete slab. He was wearing long pants at that time and denies any active bleeding. He states he noted the next day the increased swelling, pain, but no gross bleeding. He states he cleaned the area. Over time, the pain worsened and began to swell. He had some Bactrim leftover from 2014 for a reported staph infection and he took about 5 days of Bactrim about 5 days after the injury occurred. As it did not improve, he presented to [facility] Emergency Room. There, he was placed on vancomycin and clindamycin. He underwent an ultrasound that showed a 5.8 x 4.5 x 1.5 fluid collection. It was uncertain whether this was a hematoma or potential abscess but given insurance issues, he had a compression placed and he was transferred to [facility] where he has been continued on vancomycin. Currently, he is lying in bed, states that his progression has stalled and continues a fluid collection on his left lower extremity. He has not had any fevers or chills. No gross sweats. A little bit of fatigue. No sinus issues, sore throat, cough or chest pain. No nausea or vomiting. Did have some diarrhea, but was checked for Giardia over there and was noted to be negative, also cryptosporidium was negative. PAST MEDICAL HISTORY: Positive for ADHD, anxiety, erectile dysfunction, previous staph infections. PAST SURGICAL HISTORY: He denies. 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 He is single. No tobacco, no alcohol for 10 years. Questionable whether he has substance abuse or not. FAMILY HISTORY: Noncontributory. ALLERGIES: LISTED ASPIRIN. CURRENT MEDICATIONS: Include vancomycin, Xanax, Benadryl, morphine, Seroquel. PHYSICAL EXAMINATION: VITAL SIGNS: He is afebrile, temperature 97, pulse 71, respirations , blood pressure 119/79, satting 98% on room air. CONSTITUTIONAL: He is pleasant, cooperative. He is in no acute distress, sitting upright in bed. HEENT: Pupils are equal and reactive. Normal conjunctivae. Oral cavity, pharynx is clear. NECK: Supple, no JVD. LUNGS: Clear to auscultation bilaterally. HEART: S1, S2. ABDOMEN: Soft, nontender, nondistended with positive bowel sounds. EXTREMITIES: Without clubbing, cyanosis. Anterior left pierre has an approximately 6 cm fluctuant area with a scab in the middle. There is no gross warmth. It is a little bit tender to touch. There is no drainage. SKIN: Otherwise, warm to touch without rash. NEUROLOGIC: He is nonfocal, moves all extremities. PSYCHIATRIC: Affect is appropriate. LABORATORY VALUES: White count 5.9, hemoglobin 13.9, platelets of 327 with 42 neutrophils, 43 lymphs and 10 monos. Creatinine 0.8. AST 5, ALT 26. There are no radiological studies here. IMPRESSION: 1. Left lower extremity cellulitis. He did take 5 days of Bactrim prior to admission to [place]. 2. Questionable left lower extremity abscess versus possible hematoma, stopped improving. There are no wound cultures. I did call [facility]. He had negative blood cultures, but no wound cultures obtained. His Giardia and cryptosporidium are negative. 3. Questionable history of methicillin resistant Staphylococcus aureus. 4. Attention deficit hyperactivity disorder. RECOMMENDATIONS: For now, continue vancomycin. We will await Ortho evaluation, likely benefit from I and D versus aspiration. Additionally, I called [facility]. He has not had a tetanus shot while he was there; he does not remember the last time he had received one; therefore, I will boost him with one today. Thank you for allowing me to participate in the patient's care. If you have any questions, please do not hesitate to contact me. I did review [facility]'s notes. SHALONDA BAJWA MD DR: RAIN/lizett JOB#: [id number] / [id number]
[2017-02-18 03:00] VITALS: BP 104/55
[2017-02-18 04:26] LABS: BASO # 0.1 x10^3/uL (0.0-0.2); BASO % 1 % (0-3); EOS % 4 % (0-3); HEMATOCRIT 39.4 % (39.0-53.0); HEMOGLOBIN 13.6 g/dL (13.0-17.5); LYMPH # 2.8 x10^3/uL (1.0-4.8); LYMPH % 39 % (24-48); MEAN CORPUSCULAR HEMOGLOBIN 31 pg (25-35); MEAN CORPUSCULAR HGB CONC 34 g/dL (31-37); MEAN CORPUSCULAR VOLUME 91 fL (79-100); MONO % 9 % (0-9); NEUT % 48 % (31-73); PLATELET COUNT 330 x10^3/uL (140-400); RED BLOOD COUNT 4.35 x10^6/uL (4.30-5.70); RED CELL DISTRIBUTION WIDTH 13.2 % (11.5-14.5); WHITE BLOOD COUNT 7.3 x10^3/uL (4.0-11.0)
[2017-02-18 04:41] LABS: CALCIUM 9.1 mg/dL (8.5-10.1); CREATININE 0.8 mg/dL (0.7-1.3); GFR 103.6; POTASSIUM 3.5 mmol/L (3.5-5.1)
[2017-02-18] MEDS: oxyCODONE IR 5 MG TABLET PO PRN ×6 (05:42→23:27)
[2017-02-18] MEDS: VANCOMYCIN 1 GM in IV DEXTROSE 5% 250 ML IV SCH ×3 (05:45→22:06)
[2017-02-18 07:00] VITALS: BP 126/76
[2017-02-18] MEDS: SENNOSIDES/DOCUSATE 8.6/50MG TABLET. PO SCH (08:31)
[2017-02-18] MEDS: ALPRAZolam 1 MG TABLET PO PRN ×4 (08:32→22:06)
[2017-02-18] MEDS: LACTOBACILLUS RHAMNOSUS GG 1 CAPSULE. PO SCH ×2 (09:00→20:12)
--- NOTE | 2017-02-18 10:45 | PDOC ---
Infectious Disease Note Subjective Subjective s/p surgery c/o pain ROS ROS GEN: Denies fevers, chills, sweats HEENT: Denies blurred vision, sore throat CV: Denies chest pain RESP: Denies shortness of air, cough GI: Denies n/v/d NEURO: Denies confusion, dizziness MSK: Denies weakness, joint pain/swelling Vital Sign Vital Signs Vital Signs Date Time Temp Pulse Resp B/P (MAP) Pulse Ox O2 Delivery O2 Flow Rate FiO2 02/18/17 08:32 18 Room Air 02/18/17 07:00 99.4 86 126/76 (93) 94 99.4 02/17/17 16:41 2.0 Physical Exam PHYSICAL EXAM GENERAL: NAD, Alert HEENT: PERRL, OC/OP NECK: Supple, no JVD, no LN LUNGS: Clear HEART: S1S2, no gallop, no murmur ABD: Soft, NT, no organomegaly, no rebound EXT: No edema, no cyanosis.. 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 3, no focal neurologic deficit SKIN: No rash IV: ok Labs Lab Laboratory Tests Test 02/18/17 03:50 White Blood Count 7.3 x10^3/uL (4.0-11.0) Red Blood Count 4.35 x10^6/uL (4.30-5.70) Hemoglobin 13.6 g/dL (13.0-17.5) Hematocrit 39.4 % (39.0-53.0) Mean Corpuscular Volume 91 fL (79-100) Mean Corpuscular Hemoglobin 31 pg (25-35) Mean Corpuscular Hemoglobin Concent 34 g/dL (31-37) Red Cell Distribution Width 13.2 % (11.5-14.5) Platelet Count 330 x10^3/uL (140-400) Neutrophils (%) (Auto) 48 % (31-73) Lymphocytes (%) (Auto) 39 % (24-48) Monocytes (%) (Auto) 9 % (0-9) Eosinophils (%) (Auto) 4 % (0-3) Basophils (%) (Auto) 1 % (0-3) Neutrophils # (Auto) 3.5 x10^3uL (1.8-7.7) Lymphocytes # (Auto) 2.8 x10^3/uL (1.0-4.8) Monocytes # (Auto) 0.7 x10^3/uL (0.0-1.1) Eosinophils # (Auto) 0.3 x10^3/uL (0.0-0.7) Basophils # (Auto) 0.1 x10^3/uL (0.0-0.2) Sodium Level 139 mmol/L (136-145) Potassium Level 3.5 mmol/L (3.5-5.1) Chloride Level 103 mmol/L (98-107) Carbon Dioxide Level 32 mmol/L (21-32) Anion Gap 4 (6-14) Blood Urea Nitrogen 14 mg/dL (8-26) Creatinine 0.8 mg/dL (0.7-1.3) Estimated GFR (Cockcroft-Gault) 103.6 Glucose Level 108 mg/dL (70-99) Calcium Level 9.1 mg/dL (8.5-10.1) Micro culture neg Objective Assessment LLE cellulitis - took 5 days of Bactrim prior to admit to [facility] ? LLE abscess vs possible hematoma. Has stopped improving- no wound cults - d/w micro at [facility]; s/p I and D, deep hematoma 02/16 -swab culture 02/15 no growth so far ? H/o MRSA ADHD Plan Plan of Care Vanc Trough 8.7 Post-op cefazolin per ortho, now off f/u am labs and cultures soon to d/c on po LUCIO VERDE MD Feb 18, 2017 10:45
[2017-02-18 11:00] VITALS: BP 98/61
[2017-02-18] MEDS: VANCOMYCIN PER PHARMACY MC PRN (12:15)
--- NOTE | 2017-02-18 14:01 | PDOC ---
PROGRESS NOTES Chief Complaint Chief Complaint L LE cellulitis ASSESSMENT AND PLAN: 1. Cellulitis L pierre with possible abcess vs hematoma: s/p debridement on . wound care as per ortho. cont vanco 2. Pain control: IV/PO narcotics available; d/w pt: Cope not working for him; trial oxy 5-10 vs PO morphine 3. Anxiety: cont home xanax 4. adult ADHD: on adderall (home supply) 5. BPH: flomax started History of Present Illness History of Present Illness unable to weight bare due to pain. no other c/o PSA only 1 Started on flomax Claims 20 lb weight loss in 6 mos NO colon ca hx in family, never smoker Agrees to have TSH checked On IV abx per ID, plans on switching to po soon PLAN: THrow in TSH and ESR tmr aside form basic labs Dw him Advsied OP urology for anti androgen hormone or TURP if recalcitrant to medical mx Vitals Vitals Vital Signs Date Time Temp Pulse Resp B/P (MAP) Pulse Ox O2 Delivery O2 Flow Rate FiO2 02/18/17 13:55 18 Room Air 02/18/17 07:00 99.4 86 126/76 (93) 94 99.4 02/17/17 16:41 2.0 Physical Exam General: Cooperative, No acute distress, Other (drowsy) Heart: Regular rate Lungs: Clear Abdomen: Normal bowel sounds, Soft, No tenderness Extremities: No clubbing, No cyanosis, Other (pierre with pressure dressing) Skin: Other (surrounding erythema, ) Labs LABS Laboratory Tests Test 02/18/17 03:50 White Blood Count 7.3 x10^3/uL (4.0-11.0) Red Blood Count 4.35 x10^6/uL (4.30-5.70) Hemoglobin 13.6 g/dL (13.0-17.5) Hematocrit 39.4 % (39.0-53.0) Mean Corpuscular Volume 91 fL (79-100) Mean Corpuscular Hemoglobin 31 pg (25-35) Mean Corpuscular Hemoglobin Concent 34 g/dL (31-37) Red Cell Distribution Width 13.2 % (11.5-14.5) Platelet Count 330 x10^3/uL (140-400) Neutrophils (%) (Auto) 48 % (31-73) Lymphocytes (%) (Auto) 39 % (24-48) Monocytes (%) (Auto) 9 % (0-9) Eosinophils (%) (Auto) 4 % (0-3) Basophils (%) (Auto) 1 % (0-3) Neutrophils # (Auto) 3.5 x10^3uL (1.8-7.7) Lymphocytes # (Auto) 2.8 x10^3/uL (1.0-4.8) Monocytes # (Auto) 0.7 x10^3/uL (0.0-1.1) Eosinophils # (Auto) 0.3 x10^3/uL (0.0-0.7) Basophils # (Auto) 0.1 x10^3/uL (0.0-0.2) Sodium Level 139 mmol/L (136-145) Potassium Level 3.5 mmol/L (3.5-5.1) Chloride Level 103 mmol/L (98-107) Carbon Dioxide Level 32 mmol/L (21-32) Anion Gap 4 (6-14) Blood Urea Nitrogen 14 mg/dL (8-26) Creatinine 0.8 mg/dL (0.7-1.3) Estimated GFR (Cockcroft-Gault) 103.6 Glucose Level 108 mg/dL (70-99) Calcium Level 9.1 mg/dL (8.5-10.1) Review of Systems Review of Systems weak stream, frequency, urgency, incomplete voiding Comment Review of Relevant I have reviewed the following items lisa (where applicable) has been applied. Labs Laboratory Tests Test 02/17/17 05:10 02/18/17 03:50 White Blood Count 7.6 x10^3/uL (4.0-11.0) 7.3 x10^3/uL (4.0-11.0) Red Blood Count 4.54 x10^6/uL (4.30-5.70) 4.35 x10^6/uL (4.30-5.70) Hemoglobin 14.1 g/dL (13.0-17.5) 13.6 g/dL (13.0-17.5) Hematocrit 41.0 % (39.0-53.0) 39.4 % (39.0-53.0) Mean Corpuscular Volume 90 fL (79-100) 91 fL (79-100) Mean Corpuscular Hemoglobin 31 pg (25-35) 31 pg (25-35) Mean Corpuscular Hemoglobin Concent 34 g/dL (31-37) 34 g/dL (31-37) Red Cell Distribution Width 13.1 % (11.5-14.5) 13.2 % (11.5-14.5) Platelet Count 354 x10^3/uL (140-400) 330 x10^3/uL (140-400) Neutrophils (%) (Auto) 62 % (31-73) 48 % (31-73) Lymphocytes (%) (Auto) 24 % (24-48) 39 % (24-48) Monocytes (%) (Auto) 11 % (0-9) 9 % (0-9) Eosinophils (%) (Auto) 3 % (0-3) 4 % (0-3) Basophils (%) (Auto) 1 % (0-3) 1 % (0-3) Neutrophils # (Auto) 4.7 x10^3uL (1.8-7.7) 3.5 x10^3uL (1.8-7.7) Lymphocytes # (Auto) 1.8 x10^3/uL (1.0-4.8) 2.8 x10^3/uL (1.0-4.8) Monocytes # (Auto) 0.8 x10^3/uL (0.0-1.1) 0.7 x10^3/uL (0.0-1.1) Eosinophils # (Auto) 0.2 x10^3/uL (0.0-0.7) 0.3 x10^3/uL (0.0-0.7) Basophils # (Auto) 0.0 x10^3/uL (0.0-0.2) 0.1 x10^3/uL (0.0-0.2) Sodium Level 138 mmol/L (136-145) 139 mmol/L (136-145) Potassium Level 3.8 mmol/L (3.5-5.1) 3.5 mmol/L (3.5-5.1) Chloride Level 102 mmol/L (98-107) 103 mmol/L (98-107) Carbon Dioxide Level 29 mmol/L (21-32) 32 mmol/L (21-32) Anion Gap 7 (6-14) 4 (6-14) Blood Urea Nitrogen 12 mg/dL (8-26) 14 mg/dL (8-26) Creatinine 0.8 mg/dL (0.7-1.3) 0.8 mg/dL (0.7-1.3) Estimated GFR (Cockcroft-Gault) 103.6 103.6 Glucose Level 96 mg/dL (70-99) 108 mg/dL (70-99) Calcium Level 9.2 mg/dL (8.5-10.1) 9.1 mg/dL (8.5-10.1) Laboratory Tests Test 02/18/17 03:50 White Blood Count 7.3 x10^3/uL (4.0-11.0) Red Blood Count 4.35 x10^6/uL (4.30-5.70) Hemoglobin 13.6 g/dL (13.0-17.5) Hematocrit 39.4 % (39.0-53.0) Mean Corpuscular Volume 91 fL (79-100) Mean Corpuscular Hemoglobin 31 pg (25-35) Mean Corpuscular Hemoglobin Concent 34 g/dL (31-37) Red Cell Distribution Width 13.2 % (11.5-14.5) Platelet Count 330 x10^3/uL (140-400) Neutrophils (%) (Auto) 48 % (31-73) Lymphocytes (%) (Auto) 39 % (24-48) Monocytes (%) (Auto) 9 % (0-9) Eosinophils (%) (Auto) 4 % (0-3) Basophils (%) (Auto) 1 % (0-3) Neutrophils # (Auto) 3.5 x10^3uL (1.8-7.7) Lymphocytes # (Auto) 2.8 x10^3/uL (1.0-4.8) Monocytes # (Auto) 0.7 x10^3/uL (0.0-1.1) Eosinophils # (Auto) 0.3 x10^3/uL (0.0-0.7) Basophils # (Auto) 0.1 x10^3/uL (0.0-0.2) Sodium Level 139 mmol/L (136-145) Potassium Level 3.5 mmol/L (3.5-5.1) Chloride Level 103 mmol/L (98-107) Carbon Dioxide Level 32 mmol/L (21-32) Anion Gap 4 (6-14) Blood Urea Nitrogen 14 mg/dL (8-26) Creatinine 0.8 mg/dL (0.7-1.3) Estimated GFR (Cockcroft-Gault) 103.6 Glucose Level 108 mg/dL (70-99) Calcium Level 9.1 mg/dL (8.5-10.1) Microbiology 02/15/17 Gram Stain - Final, Complete Medications Current Medications Acetaminophen/ Hydrocodone Bitart (Lortab ) 1 tab PRN Q6HRS PRN PO PAIN Last administered on 02/17/17 06:07; Start 02/14/17 at 21:45; Stop 02/17/17 at 09:53; Status DC Quetiapine Fumarate (SEROquel) 25 mg QHS PO ; Start 02/14/17 at 22:00 Sildenafil Citrate (Revatio) 25 mg DAILY PO ; Start 02/15/17 at 09:00; Status UNV Alprazolam (Xanax) 2 mg PRN QHS PRN PO ANXIETY / AGITATION Last administered on 02/17/17 21:59; Start 02/14/17 at 22:00 Morphine Sulfate 4 mg PRN Q2HR PRN IV PAIN Last administered on 02/16/17 15: 25; Start 02/14/17 at 22:30; Stop 02/16/17 at 15:43; Status DC Diphenhydramine HCl (Benadryl) 25 mg PRN Q6HRS PRN IVP ITCHING; Start at 22:30 Vancomycin HCl (Vanco Per Pharmacy) 1 each PRN DAILY PRN MC SEE COMMENTS Last administered on 02/18/17 12:15; Start 02/14/17 at 23:00 Non-Formulary Medication 1 ea BID PO ; Start 02/15/17 at 09:00; Status UNV Vancomycin HCl 1.25 gm/Dextrose 250 ml @ 167 mls/hr Q12H IV Last administered on 02/14/17 23:20; Start 02/14/17 at 23:00; Stop 02/14/17 at 23:45; Status DC Alprazolam (Xanax) 1 mg PRN Q6HRS PRN PO ANXIETY / AGITATION Last administered on 02/18/17 13:54; Start 02/14/17 at 23:15 Vancomycin HCl 1 each 1X ONCE MC Last administered on 02/15/17 05:00; Start 02/15/17 at 05:00; Stop 02/15/17 at 05:01; Status DC Vancomycin HCl 1.25 gm/Dextrose 250 ml @ 167 mls/hr Q12H IV Last administered on 02/16/17 13:33; Start 02/15/17 at 11:00; Stop 02/16/17 at 15:47; Status DC Vancomycin HCl 1 each 1X ONCE MC Last administered on 02/16/17 10:30; Start 02/16/17 at 10:30; Stop 02/16/17 at 10:31; Status DC Tetanus/ Diphtheria Toxoids (Tenivac Syringe) 0.5 ml ONCE ONCE VAX IM Last administered on 02/15/17 13:33; Start 02/15/17 at 13:00; Stop 02/15/17 at 13 :01; Status DC Lidocaine/Sodium Bicarbonate (Buffered Lidocaine 1%) 20 ml 1X ONCE IJ ; Start 02/15/17 at 15:00; Stop 02/15/17 at 15:00; Status DC Lidocaine HCl 20 ml 1X ONCE IJ ; Start 02/15/17 at 15:15; Stop 02/15/17 at 15 :16; Status DC Acetaminophen (Tylenol) 650 mg PRN Q6HRS PRN PO FEVER; Start 02/15/17 at 16:15 Ondansetron HCl (Zofran) 4 mg PRN Q6HRS PRN IV NAUSEA/VOMITING; Start at 16:15; Stop 02/16/17 at 15:44; Status DC Morphine Sulfate 2 mg PRN Q2HR PRN IV PAIN; Start 02/15/17 at 16:15; Stop at 15:43; Status DC Tramadol HCl (Ultram) 50 mg PRN Q6HRS PRN PO PAIN; Start 02/15/17 at 16:15; Stop 02/17/17 at 09:53; Status DC Hydralazine HCl (Apresoline Inj) 10 mg PRN Q4HRS PRN IVP ELEVATED BP, SEE COMMENTS; Start 02/15/17 at 16:15 Docusate Sodium (Colace) 100 mg PRN DAILY PRN PO CONSTIPATION; Start 02/15/17 at 16:15 Acetaminophen (Tylenol) 650 mg PRN Q6HRS PRN PO FEVER; Start 02/15/17 at 16:15 ; Status UNV Ondansetron HCl (Zofran) 4 mg PRN Q6HRS PRN IV NAUSEA/VOMITING; Start at 16:15; Status UNV Morphine Sulfate 2 mg PRN Q2HR PRN IV PAIN; Start 02/15/17 at 16:15; Status UNV Tramadol HCl (Ultram) 50 mg PRN Q6HRS PRN PO PAIN; Start 02/15/17 at 16:15; Status UNV Hydralazine HCl (Apresoline Inj) 10 mg PRN Q4HRS PRN IVP ELEVATED BP, SEE COMMENTS; Start 02/15/17 at 16:15; Status UNV Docusate Sodium (Colace) 100 mg PRN DAILY PRN PO CONSTIPATION; Start 02/15/17 at 16:15; Status UNV Tamsulosin HCl (Flomax) 0.4 mg QHS PO Last administered on 02/17/17t 21:59; Start 02/15/17 at 21:00 Ondansetron HCl (Zofran) 4 mg PRN Q6HRS PRN IV NAUSEA/VOMITING; Start at 07:30; Stop 02/16/17 at 15:44; Status DC Fentanyl Citrate (Fentanyl 2ml Vial) 25 mcg PRN Q5MIN PRN IV MILD PAIN; Start 02/16/17 at 07:30; Stop 02/17/17 at 07:29; Status DC Fentanyl Citrate (Fentanyl 2ml Vial) 50 mcg PRN Q5MIN PRN IV MODERATE PAIN; Start 02/16/17 at 07:30; Stop 02/17/17 at 07:29; Status DC Morphine Sulfate 1 mg PRN Q10MIN PRN IV SEVERE PAIN Last administered on t 09:43; Start 02/16/17 at 07:30; Stop 02/16/17 at 15:43; Status DC Ringer's Solution 1,000 ml @ 30 mls/hr Q24H IV ; Start 02/16/17 at 07:22; Stop 02/16/17 at 17:14; Status DC Lidocaine HCl (Xylocaine-Mpf 1% Vial) 2 ml 1X PRN PRN ID IV START; Start 02/16 at 07:30; Stop 02/17/17 at 07:29; Status DC Hydromorphone HCl (Dilaudid) 0.5 mg PRN Q10MIN PRN IV SEV PAIN, Second choice; Start 02/16/17 at 07:30; Stop 02/17/17 at 07:29; Status DC Prochlorperazine Edisylate (Compazine) 5 mg PACU PRN PRN IV NAUSEA, MRX1; Start 02/16/17 at 07:30; Stop 02/17/17 at 07:29; Status DC Propofol 20 ml @ As Directed STK-MED ONCE IV ; Start 02/16/17 at 08:39; Stop 02/16/17 at 08:40; Status DC Fentanyl Citrate (Fentanyl 2ml Vial) 100 mcg STK-MED ONCE .ROUTE ; Start at 08:39; Stop 02/16/17 at 08:40; Status DC Midazolam HCl (Versed) 2 mg STK-MED ONCE .ROUTE ; Start 02/16/17 at 08:39; Stop 02/16/17 at 08:40; Status DC Cefazolin Sodium/ Dextrose 50 ml @ As Directed STK-MED ONCE IV ; Start at 08:56; Stop 02/16/17 at 08:57; Status DC Propofol 20 ml @ As Directed STK-MED ONCE IV ; Start 02/16/17 at 09:10; Stop 02/16/17 at 09:11; Status DC Bupivacaine HCl/ Epinephrine Bitart (Marcaine-Epi 0.25%-[id number]) 50 ml STK-MED ONCE .ROUTE Last administered on 02/16/17t 09:13; Start 02/16/17 at 09:14; Stop 02/16/17 at 09:15; Status DC Morphine Sulfate 2 mg STK-MED ONCE .ROUTE ; Start 02/16/17 at 09:31; Stop at 09:32; Status DC Oxycodone HCl (Roxicodone) 5 mg PRN Q3HRS PRN PO PAIN; Start 02/16/17 at 09:45 ; Stop 02/17/17 at 09:53; Status DC Morphine Sulfate 2 mg PRN Q1HR PRN IV PAIN; Start 02/16/17 at 09:45; Stop at 09:53; Status DC Senna/Docusate Sodium (Senna Plus) 1 tab DAILY PO Last administered on 08:31; Start 02/17/17 at 09:00 Polyethylene Glycol (miraLAX PACKET) 17 gm PRN DAILY PRN PO CONSTIPATION; Start 02/16/17 at 09:45 Ondansetron HCl (Zofran) 4 mg PRN Q4HRS PRN IV NAUSEA/VOMITING; Start at 09:45 Magnesium Hydroxide (Milk Of Magnesia) 2,400 mg 1X PRN PRN PO CONSTIPATION; Start 02/17/17 at 06:00; Stop 02/18/17 at 05:59; Status DC Bisacodyl (Dulcolax Supp) 10 mg 1X PRN PRN [place] CONSTIPATION; Start 02/17/17 at 16:00; Stop 02/18/17 at 15:59 Acetaminophen/ Hydrocodone Bitart (Lortab 7.5/325) 1 tab PRN Q4HRS PRN PO PAIN ; Start 02/16/17 at 09:45; Stop 02/17/17 at 09:53; Status DC Morphine Sulfate 4 mg PRN Q2HR PRN IV PAIN Last administered on 02/16/17 20: 37; Start 02/16/17 at 09:45; Stop 02/17/17 at 09:53; Status DC Acetaminophen/ Hydrocodone Bitart (Lortab 7.5/325) 2 tab PRN Q4HRS PRN PO PAIN ; Start 02/16/17 at 09:45; Stop 02/17/17 at 09:53; Status DC Dextrose (Dextrose 50%-Water Syringe) 12.5 gm PRN Q15MIN PRN IV SEE COMMENTS; Start 02/16/17 at 09:45 Cefazolin Sodium/ Dextrose 50 ml @ 100 mls/hr Q6H IV Last administered on 03:18; Start 02/16/17 at 15:00; Stop 02/17/17 at 03:29; Status DC Vancomycin HCl 1 gm/Dextrose 250 ml @ 250 mls/hr Q8HRS IV Last administered on 02/18/17 13:52; Start 02/16/17 at 22:00 Lactobacillus Rhamnosus (Culturelle) 1 cap BID PO Last administered on 09:00; Start 02/16/17 at 21:00 Morphine Sulfate 2 mg PRN Q2HR PRN IV PAIN; Start 02/17/17 at 10:00 Oxycodone HCl (Roxicodone) 5 mg PRN Q3HRS PRN PO PAIN; Start 02/17/17 at 10:00 ; Stop 02/17/17 at 10:02; Status DC Oxycodone HCl (Roxicodone) 10 mg PRN Q3HRS PRN PO PAIN Last administered on 13:55; Start 02/17/17 at 10:02 Oxycodone HCl (Roxicodone) 5 mg PRN Q3HRS PRN PO PAIN; Start 02/17/17 at 10:15 Active Scripts Active Reported Sildenafil (Sildenafil Citrate) 20 Mg Tablet 25 Mg PO DAILY Seroquel (Quetiapine Fumarate) 25 Mg Tablet 1 Tab PO QHS Mupirocin Ointment (Mupirocin) 22 Gm Oint...g. 1 Jhon TP BID Amphetamine Salts 15 Mg Tab (Dextroamphetamine/Amphetamine) 15 Mg Tablet 15 Mg PO Alprazolam 2 Mg Tablet 2 Mg PO QHS PRN Vitals/I & O Vital Sign - Last 24 Hours 02/17/17 02/17/17 02/17/17 02/17/17 15:00 15:41 16:41 19:00 Temp 97.9 97.5 97.9 97.5 Pulse 85 89 Resp 19 B/P (MAP) 119/73 (88) 100/65 (77) Pulse Ox 96 96 96 95 O2 Delivery Room Air Room Air Room Air O2 Flow Rate 2.0 2.0 02/17/17 02/17/17 02/18/17 02/18/17 19:25 23:00 03:00 05:42 Temp 97.7 98.7 97.7 98.7 Pulse 88 87 Resp 20 20 B/P (MAP) 112/76 (88) 104/55 (71) Pulse Ox 96 94 O2 Delivery Room Air Room Air Room Air Room Air 02/18/17 02/18/17 02/18/17 02/18/17 07:00 08:00 08:32 09:32 Temp 99.4 99.4 Pulse 86 Resp 18 18 18 B/P (MAP) 126/76 (93) Pulse Ox 94 O2 Delivery Room Air Room Air Room Air Room Air 02/18/17 13:55 Resp 18 O2 Delivery Room Air Intake and Output 02/17/17 02/17/17 02/18/17 15:00 23:00 07:00 Intake Total 1450 ml 370 ml Output Total 1150 ml 300 ml Balance 300 ml 70 ml THANG OSUNA MD Feb 18, 2017 14:01
--- NOTE | 2017-02-18 14:16 | PDOC ---
PROGRESS NOTES Subjective Subjective Pt states pain is better today. Objective Vital Signs Vital Signs Date Time Temp Pulse Resp B/P (MAP) Pulse Ox O2 Delivery O2 Flow Rate FiO2 02/18/17 13:55 18 Room Air 02/18/17 07:00 99.4 86 126/76 (93) 94 99.4 02/17/17 16:41 2.0 Physical Exam Lying in bed. Left lower leg dressing dry and intact. Calf soft and nontender with a negative Teddy's sign. Good df/pf. Neurovascularly intact. Labs Laboratory Tests Test 02/17/17 05:10 02/18/17 03:50 White Blood Count 7.6 x10^3/uL (4.0-11.0) 7.3 x10^3/uL (4.0-11.0) Red Blood Count 4.54 x10^6/uL (4.30-5.70) 4.35 x10^6/uL (4.30-5.70) Hemoglobin 14.1 g/dL (13.0-17.5) 13.6 g/dL (13.0-17.5) Hematocrit 41.0 % (39.0-53.0) 39.4 % (39.0-53.0) Mean Corpuscular Volume 90 fL (79-100) 91 fL (79-100) Mean Corpuscular Hemoglobin 31 pg (25-35) 31 pg (25-35) Mean Corpuscular Hemoglobin Concent 34 g/dL (31-37) 34 g/dL (31-37) Red Cell Distribution Width 13.1 % (11.5-14.5) 13.2 % (11.5-14.5) Platelet Count 354 x10^3/uL (140-400) 330 x10^3/uL (140-400) Neutrophils (%) (Auto) 62 % (31-73) 48 % (31-73) Lymphocytes (%) (Auto) 24 % (24-48) 39 % (24-48) Monocytes (%) (Auto) 11 % (0-9) 9 % (0-9) Eosinophils (%) (Auto) 3 % (0-3) 4 % (0-3) Basophils (%) (Auto) 1 % (0-3) 1 % (0-3) Neutrophils # (Auto) 4.7 x10^3uL (1.8-7.7) 3.5 x10^3uL (1.8-7.7) Lymphocytes # (Auto) 1.8 x10^3/uL (1.0-4.8) 2.8 x10^3/uL (1.0-4.8) Monocytes # (Auto) 0.8 x10^3/uL (0.0-1.1) 0.7 x10^3/uL (0.0-1.1) Eosinophils # (Auto) 0.2 x10^3/uL (0.0-0.7) 0.3 x10^3/uL (0.0-0.7) Basophils # (Auto) 0.0 x10^3/uL (0.0-0.2) 0.1 x10^3/uL (0.0-0.2) Sodium Level 138 mmol/L (136-145) 139 mmol/L (136-145) Potassium Level 3.8 mmol/L (3.5-5.1) 3.5 mmol/L (3.5-5.1) Chloride Level 102 mmol/L (98-107) 103 mmol/L (98-107) Carbon Dioxide Level 29 mmol/L (21-32) 32 mmol/L (21-32) Anion Gap 7 (6-14) 4 (6-14) Blood Urea Nitrogen 12 mg/dL (8-26) 14 mg/dL (8-26) Creatinine 0.8 mg/dL (0.7-1.3) 0.8 mg/dL (0.7-1.3) Estimated GFR (Cockcroft-Gault) 103.6 103.6 Glucose Level 96 mg/dL (70-99) 108 mg/dL (70-99) Calcium Level 9.2 mg/dL (8.5-10.1) 9.1 mg/dL (8.5-10.1) Laboratory Tests Test 02/18/17 03:50 White Blood Count 7.3 x10^3/uL (4.0-11.0) Red Blood Count 4.35 x10^6/uL (4.30-5.70) Hemoglobin 13.6 g/dL (13.0-17.5) Hematocrit 39.4 % (39.0-53.0) Mean Corpuscular Volume 91 fL (79-100) Mean Corpuscular Hemoglobin 31 pg (25-35) Mean Corpuscular Hemoglobin Concent 34 g/dL (31-37) Red Cell Distribution Width 13.2 % (11.5-14.5) Platelet Count 330 x10^3/uL (140-400) Neutrophils (%) (Auto) 48 % (31-73) Lymphocytes (%) (Auto) 39 % (24-48) Monocytes (%) (Auto) 9 % (0-9) Eosinophils (%) (Auto) 4 % (0-3) Basophils (%) (Auto) 1 % (0-3) Neutrophils # (Auto) 3.5 x10^3uL (1.8-7.7) Lymphocytes # (Auto) 2.8 x10^3/uL (1.0-4.8) Monocytes # (Auto) 0.7 x10^3/uL (0.0-1.1) Eosinophils # (Auto) 0.3 x10^3/uL (0.0-0.7) Basophils # (Auto) 0.1 x10^3/uL (0.0-0.2) Sodium Level 139 mmol/L (136-145) Potassium Level 3.5 mmol/L (3.5-5.1) Chloride Level 103 mmol/L (98-107) Carbon Dioxide Level 32 mmol/L (21-32) Anion Gap 4 (6-14) Blood Urea Nitrogen 14 mg/dL (8-26) Creatinine 0.8 mg/dL (0.7-1.3) Estimated GFR (Cockcroft-Gault) 103.6 Glucose Level 108 mg/dL (70-99) Calcium Level 9.1 mg/dL (8.5-10.1) Assessment Assessment POD #2 left leg I&D Problems: Plan Plan of Care Continue weightbearing as tolerated. Cultures so far show no growth. Home on PO abx, per ID. Followup with [facility] in 10-14 days. BABITA KIM Feb 18, 2017 14:16
[2017-02-18 15:00] VITALS: BP 84/58
[2017-02-18 19:00] VITALS: BP 105/75
[2017-02-18] MEDS: TAMSULOSIN 0.4 MG CAP.ER.24H. PO SCH (20:13)
[2017-02-18] MEDS: QUEtiapine 25 MG TABLET. PO SCH (20:14)
[2017-02-18 23:00] VITALS: BP 102/78
[2017-02-19 03:00] VITALS: BP_SYST 118; BP_SYST 130; BP_DIAS 68; BP_DIAS 82
[2017-02-19] MEDS: ALPRAZolam 1 MG TABLET PO PRN ×4 (04:00→21:08)
[2017-02-19] MEDS: oxyCODONE IR 5 MG TABLET PO PRN ×6 (04:01→22:52)
[2017-02-19 05:12] LABS: BASO % 1 % (0-3); EOS % 4 % (0-3); HEMATOCRIT 40.6 % (39.0-53.0); HEMOGLOBIN 13.9 g/dL (13.0-17.5); LYMPH # 2.9 x10^3/uL (1.0-4.8); LYMPH % 36 % (24-48); MEAN CORPUSCULAR HEMOGLOBIN 31 pg (25-35); MEAN CORPUSCULAR HGB CONC 34 g/dL (31-37); MEAN CORPUSCULAR VOLUME 92 fL (79-100); MONO % 10 % (0-9); NEUT % 50 % (31-73); PLATELET COUNT 346 x10^3/uL (140-400); RED BLOOD COUNT 4.42 x10^6/uL (4.30-5.70); RED CELL DISTRIBUTION WIDTH 12.8 % (11.5-14.5)
[2017-02-19] MEDS: VANCOMYCIN 1 GM in IV DEXTROSE 5% 250 ML IV SCH (05:29)
[2017-02-19 05:39] LABS: CALCIUM 9.3 mg/dL (8.5-10.1); GFR 80.1; POTASSIUM 4.3 mmol/L (3.5-5.1)
[2017-02-19 07:00] VITALS: BP 103/67
[2017-02-19] MEDS: LACTOBACILLUS RHAMNOSUS GG 1 CAPSULE. PO SCH ×2 (07:46→21:07)
[2017-02-19] MEDS: SENNOSIDES/DOCUSATE 8.6/50MG TABLET. PO SCH (07:47)
--- NOTE | 2017-02-19 10:50 | PDOC ---
Infectious Disease Note Subjective Subjective feeling ok ROS ROS GEN: Denies fevers, chills, sweats HEENT: Denies blurred vision, sore throat CV: Denies chest pain RESP: Denies shortness of air, cough GI: Denies n/v/d NEURO: Denies confusion, dizziness MSK: Denies weakness, joint pain/swelling Vital Sign Vital Signs Vital Signs Date Time Temp Pulse Resp B/P (MAP) Pulse Ox O2 Delivery O2 Flow Rate FiO2 02/19/17 10:46 Room Air 02/19/17 07:00 97.7 93 20 103/67 (79) 97 97.7 Physical Exam PHYSICAL EXAM GENERAL: NAD, Alert HEENT: PERRL, OC/OP NECK: Supple, no JVD, no LN LUNGS: Clear HEART: S1S2, no gallop, no murmur ABD: Soft, NT, no organomegaly, no rebound EXT: No edema, no cyanosis, leg incision looks good LOW VOLTAGE TECHNICIAN: Alert, oriented x 3, no focal neurologic deficit SKIN: No rash IV: ok Labs Lab Laboratory Tests Test 02/19/17 03:50 White Blood Count 8.0 x10^3/uL (4.0-11.0) Red Blood Count 4.42 x10^6/uL (4.30-5.70) Hemoglobin 13.9 g/dL (13.0-17.5) Hematocrit 40.6 % (39.0-53.0) Mean Corpuscular Volume 92 fL (79-100) Mean Corpuscular Hemoglobin 31 pg (25-35) Mean Corpuscular Hemoglobin Concent 34 g/dL (31-37) Red Cell Distribution Width 12.8 % (11.5-14.5) Platelet Count 346 x10^3/uL (140-400) Neutrophils (%) (Auto) 50 % (31-73) Lymphocytes (%) (Auto) 36 % (24-48) Monocytes (%) (Auto) 10 % (0-9) Eosinophils (%) (Auto) 4 % (0-3) Basophils (%) (Auto) 1 % (0-3) Neutrophils # (Auto) 4.0 x10^3uL (1.8-7.7) Lymphocytes # (Auto) 2.9 x10^3/uL (1.0-4.8) Monocytes # (Auto) 0.8 x10^3/uL (0.0-1.1) Eosinophils # (Auto) 0.3 x10^3/uL (0.0-0.7) Basophils # (Auto) 0.0 x10^3/uL (0.0-0.2) Erythrocyte Sedimentation Rate 10 (0-15) Sodium Level 140 mmol/L (136-145) Potassium Level 4.3 mmol/L (3.5-5.1) Chloride Level 102 mmol/L (98-107) Carbon Dioxide Level 31 mmol/L (21-32) Anion Gap 7 (6-14) Blood Urea Nitrogen 19 mg/dL (8-26) Creatinine 1.0 mg/dL (0.7-1.3) Estimated GFR (Cockcroft-Gault) 80.1 Glucose Level 110 mg/dL (70-99) Calcium Level 9.3 mg/dL (8.5-10.1) Micro culture neg Objective Assessment LLE cellulitis - took 5 days of Bactrim prior to admit to [facility] ? LLE abscess vs possible hematoma. Has stopped improving- no wound cults - d/w micro at [facility]; s/p I and D, deep hematoma 02/16 -swab culture 02/15 no growth so far ? H/o MRSA ADHD Plan Plan of Care Post-op cefazolin per ortho, now off f/u am labs and cultures soon to d/c on po LUCIO Solorzano MD Feb 19, 2017 10:50
[2017-02-19 11:00] VITALS: BP 106/59
[2017-02-19] MEDS ORDERED: CEPH-264 PO (11:06)
--- NOTE | 2017-02-19 11:08 | PDOC3 ---
Discharge Summary Visit Information Date of Admission: Feb 14, 2017 Date of Discharge: Feb 19, 2017 Admitting Diagnosis Comment: 1. Cellulitis L pierre with possible abcess vs hematoma: s/p debridement on . 2. Pain control: IV/PO narcotics available; d/w pt: [place] not working for him; trial oxy 5-10 vs PO morphine 3. Anxiety: cont home xanax 4. adult ADHD: on adderall (home supply) 5. BPH: flomax started Brief Hospital Course Allergies Allergies Coded Allergies Type Severity Reaction Last Updated Verified aspirin Allergy Unknown 02/14/17 Yes Vital Signs Vital Signs Date Time Temp Pulse Resp B/P (MAP) Pulse Ox O2 Delivery O2 Flow Rate FiO2 02/19/17 10:46 Room Air 02/19/17 07:00 97.7 93 20 103/67 (79) 97 97.7 Lab Results Laboratory Tests Test 02/18/17 03:50 02/19/17 03:50 White Blood Count 7.3 x10^3/uL (4.0-11.0) 8.0 x10^3/uL (4.0-11.0) Red Blood Count 4.35 x10^6/uL (4.30-5.70) 4.42 x10^6/uL (4.30-5.70) Hemoglobin 13.6 g/dL (13.0-17.5) 13.9 g/dL (13.0-17.5) Hematocrit 39.4 % (39.0-53.0) 40.6 % (39.0-53.0) Mean Corpuscular Volume 91 fL (79-100) 92 fL (79-100) Mean Corpuscular Hemoglobin 31 pg (25-35) 31 pg (25-35) Mean Corpuscular Hemoglobin Concent 34 g/dL (31-37) 34 g/dL (31-37) Red Cell Distribution Width 13.2 % (11.5-14.5) 12.8 % (11.5-14.5) Platelet Count 330 x10^3/uL (140-400) 346 x10^3/uL (140-400) Neutrophils (%) (Auto) 48 % (31-73) 50 % (31-73) Lymphocytes (%) (Auto) 39 % (24-48) 36 % (24-48) Monocytes (%) (Auto) 9 % (0-9) 10 % (0-9) Eosinophils (%) (Auto) 4 % (0-3) 4 % (0-3) Basophils (%) (Auto) 1 % (0-3) 1 % (0-3) Neutrophils # (Auto) 3.5 x10^3uL (1.8-7.7) 4.0 x10^3uL (1.8-7.7) Lymphocytes # (Auto) 2.8 x10^3/uL (1.0-4.8) 2.9 x10^3/uL (1.0-4.8) Monocytes # (Auto) 0.7 x10^3/uL (0.0-1.1) 0.8 x10^3/uL (0.0-1.1) Eosinophils # (Auto) 0.3 x10^3/uL (0.0-0.7) 0.3 x10^3/uL (0.0-0.7) Basophils # (Auto) 0.1 x10^3/uL (0.0-0.2) 0.0 x10^3/uL (0.0-0.2) Sodium Level 139 mmol/L (136-145) 140 mmol/L (136-145) Potassium Level 3.5 mmol/L (3.5-5.1) 4.3 mmol/L (3.5-5.1) Chloride Level 103 mmol/L (98-107) 102 mmol/L (98-107) Carbon Dioxide Level 32 mmol/L (21-32) 31 mmol/L (21-32) Anion Gap 4 (6-14) 7 (6-14) Blood Urea Nitrogen 14 mg/dL (8-26) 19 mg/dL (8-26) Creatinine 0.8 mg/dL (0.7-1.3) 1.0 mg/dL (0.7-1.3) Estimated GFR (Cockcroft-Gault) 103.6 80.1 Glucose Level 108 mg/dL (70-99) 110 mg/dL (70-99) Calcium Level 9.1 mg/dL (8.5-10.1) 9.3 mg/dL (8.5-10.1) Erythrocyte Sedimentation Rate 10 (0-15) Laboratory Tests Test 02/19/17 03:50 White Blood Count 8.0 x10^3/uL (4.0-11.0) Red Blood Count 4.42 x10^6/uL (4.30-5.70) Hemoglobin 13.9 g/dL (13.0-17.5) Hematocrit 40.6 % (39.0-53.0) Mean Corpuscular Volume 92 fL (79-100) Mean Corpuscular Hemoglobin 31 pg (25-35) Mean Corpuscular Hemoglobin Concent 34 g/dL (31-37) Red Cell Distribution Width 12.8 % (11.5-14.5) Platelet Count 346 x10^3/uL (140-400) Neutrophils (%) (Auto) 50 % (31-73) Lymphocytes (%) (Auto) 36 % (24-48) Monocytes (%) (Auto) 10 % (0-9) Eosinophils (%) (Auto) 4 % (0-3) Basophils (%) (Auto) 1 % (0-3) Neutrophils # (Auto) 4.0 x10^3uL (1.8-7.7) Lymphocytes # (Auto) 2.9 x10^3/uL (1.0-4.8) Monocytes # (Auto) 0.8 x10^3/uL (0.0-1.1) Eosinophils # (Auto) 0.3 x10^3/uL (0.0-0.7) Basophils # (Auto) 0.0 x10^3/uL (0.0-0.2) Erythrocyte Sedimentation Rate 10 (0-15) Sodium Level 140 mmol/L (136-145) Potassium Level 4.3 mmol/L (3.5-5.1) Chloride Level 102 mmol/L (98-107) Carbon Dioxide Level 31 mmol/L (21-32) Anion Gap 7 (6-14) Blood Urea Nitrogen 19 mg/dL (8-26) Creatinine 1.0 mg/dL (0.7-1.3) Estimated GFR (Cockcroft-Gault) 80.1 Glucose Level 110 mg/dL (70-99) Calcium Level 9.3 mg/dL (8.5-10.1) Brief Hospital Course Mr. Kang is a 46 old male who is narc tolerant and also needing some xanax 2 mgs, admitted for cellulitis and some abscess on left pierre needed draiange by ortho AMIE< also co managed with ID, To go home on PO abx, kefflex. BC and wound cx neg, Home with rx all done Seen and examined Dw RN COnsults; ID and ortho Ff up ortho AMIE 10-14 days Discharge Information Condition at Discharge: Improved, Stable Follow Up: Weeks (10 -14 days ortho amie) Disposition/Orders: D/C to Home Scheduled Mupirocin (Mupirocin Ointment), 1 ANJEL TP BID, (Reported) Quetiapine Fumarate (Seroquel), 1 TAB PO QHS, (Reported) Sildenafil Citrate (Sildenafil), 25 MG PO DAILY, (Reported) Scheduled PRN Alprazolam (Alprazolam), 2 MG PO QHS PRN for ANXIETY / AGITATION, (Reported) Miscellaneous Medications Dextroamphetamine/Amphetamine (Amphetamine Salts 15 Mg Tab), 15 MG PO, (Reported ) THANG OSUNA MD Feb 19, 2017 11:08
[2017-02-19] MEDS: DOXYCYCLINE HYCLATE 100 MG TABLET PO SCH ×2 (12:35→21:07)
[2017-02-19 15:00] VITALS: BP 134/82
--- NOTE | 2017-02-19 16:00 | PDOC ---
Provider Note Provider Note Wound doesnt look good per wound care, today Might benefit few more days IV abx HEnce dc held Start iV rocephin Vanc has been dcd THANG OSUNA MD Feb 19, 2017 16:00
[2017-02-19] MEDS ORDERED: cefTRIAXone IV Push 1 GM VIAL. IVP SCH (17:00)
[2017-02-19 19:00] VITALS: BP 144/85
[2017-02-19] MEDS: QUEtiapine 25 MG TABLET. PO SCH ×2 (21:00→21:07)
[2017-02-19] MEDS: TAMSULOSIN 0.4 MG CAP.ER.24H. PO SCH (21:07)
[2017-02-19 23:00] VITALS: BP 149/85
[2017-02-20] MEDS: oxyCODONE IR 5 MG TABLET PO PRN ×2 (02:42→07:59)
[2017-02-20] MEDS: ALPRAZolam 1 MG TABLET PO PRN ×2 (02:42→08:59)
[2017-02-20 03:00] VITALS: BP 142/88
[2017-02-20 07:00] VITALS: BP 108/67
[2017-02-20] MEDS: LACTOBACILLUS RHAMNOSUS GG 1 CAPSULE. PO SCH (07:56)
[2017-02-20] MEDS: SENNOSIDES/DOCUSATE 8.6/50MG TABLET. PO SCH (07:57)
[2017-02-20] MEDS: DOXYCYCLINE HYCLATE 100 MG TABLET PO SCH (07:58)
--- NOTE | 2017-02-20 09:57 | PDOC ---
Infectious Disease Note Subjective Subjective feeling ok,, cont pain ROS ROS GEN: Denies fevers, chills, sweats HEENT: Denies blurred vision, sore throat CV: Denies chest pain RESP: Denies shortness of air, cough GI: Denies n/v/d NEURO: Denies confusion, dizziness MSK: Denies weakness, joint pain/swelling Vital Sign Vital Signs Vital Signs Date Time Temp Pulse Resp B/P (MAP) Pulse Ox O2 Delivery O2 Flow Rate FiO2 02/20/17 08:59 20 97 Room Air 02/20/17 07:00 98.2 103 108/67 (81) 98.2 Physical Exam PHYSICAL EXAM GENERAL: NAD, Alert HEENT: PERRL, OC/OP NECK: Supple, no JVD, no LN LUNGS: Clear HEART: S1S2, no gallop, no murmur ABD: Soft, NT, no organomegaly, no rebound EXT: No edema, no cyanosis,, left leg area looks ok, some bruising +, no sign of infection, may be there is still hematoma + medial to incision FILM TOUCH UP INSPECTOR: Alert, oriented x 3, no focal neurologic deficit SKIN: No rash IV: ok Labs Micro culture neg Objective Assessment LLE cellulitis - took 5 days of Bactrim prior to admit to [facility] ? LLE abscess vs possible hematoma. Has stopped improving- no wound cults - d/w micro at [facility]; s/p I and D, deep hematoma 02/16 -swab culture 02/15 no growth so far ? H/o MRSA ADHD Plan Plan of Care Post-op cefazolin per ortho, now off f/u am labs and cultures ultrasound to rule out another pocket soon to d/c on po LUCIO Solorzano MD Feb 20, 2017 09:57
[2017-02-20 11:00] VITALS: BP 127/76
[2017-02-20] MEDS ORDERED: DOXY100C14 PO (11:22)
--- NOTE | 2017-02-20 11:24 | PDOC ---
Provider Note Provider Note Pt did not dc yesterday bec wound looked "bad yesterday", Advised more days abx. Dw ID today, US today, if neg abscess then home pO doxy, All rx written and inc THANG Saucedo MD Feb 20, 2017 11:24
--- NOTE | 2017-02-20 12:25 | RAD ---
Focused abdominal ultrasound, left lower extremity subcutaneous tissues of the anterior leg. 02/20/2017 Indication: Wound. Evaluate for underlying fluid collection. Comparison study: None Discussion: Ultrasound evaluation of the subcutaneous tissues of the left lower extremity just deep to wound on anterior leg was performed. Static images are submitted to PACS. There is a mildly heterogenous hypoechoic fluid collection in the subcutaneous tissues, immediately deep to the wound. Collection measures approximately 5.4 x 2.8 x 0.6 cm. No internal blood flow is identified on color Doppler imaging. No other focal sonographic normalities are seen on provided imaging. Impression: 0.6 x 5.4 x 2.8 cm fluid collection immediately deep to the wound on the anterior leg. Findings most likely represent a hematoma or abscess.
--- NOTE | 2017-02-20 13:52 | PDOC ---
PROGRESS NOTES Subjective Subjective Pt states pain is controlled, but is worse with weightbearing. He is worried about his wound. Objective Vital Signs Vital Signs Date Time Temp Pulse Resp B/P (MAP) Pulse Ox O2 Delivery O2 Flow Rate FiO2 02/20/17 11:00 97.9 105 16 127/76 (93) 95 Room Air 97.9 02/17/17 16:41 2.0 Physical Exam Leg was unwrapped and wound was inspected. Incision medial to wound is clean, dry, and intact with sutures in place. The wound looks better today than yesterday, seems to be forming an eschar. No active drainage. Minimal swelling. Discoloration has improved as well. Calf soft and nontender with negative Teddy' s sign. Good dorsiflexion and plantarflexion. NVI. Labs Laboratory Tests Test 02/19/17 03:50 White Blood Count 8.0 x10^3/uL (4.0-11.0) Red Blood Count 4.42 x10^6/uL (4.30-5.70) Hemoglobin 13.9 g/dL (13.0-17.5) Hematocrit 40.6 % (39.0-53.0) Mean Corpuscular Volume 92 fL (79-100) Mean Corpuscular Hemoglobin 31 pg (25-35) Mean Corpuscular Hemoglobin Concent 34 g/dL (31-37) Red Cell Distribution Width 12.8 % (11.5-14.5) Platelet Count 346 x10^3/uL (140-400) Neutrophils (%) (Auto) 50 % (31-73) Lymphocytes (%) (Auto) 36 % (24-48) Monocytes (%) (Auto) 10 % (0-9) Eosinophils (%) (Auto) 4 % (0-3) Basophils (%) (Auto) 1 % (0-3) Neutrophils # (Auto) 4.0 x10^3uL (1.8-7.7) Lymphocytes # (Auto) 2.9 x10^3/uL (1.0-4.8) Monocytes # (Auto) 0.8 x10^3/uL (0.0-1.1) Eosinophils # (Auto) 0.3 x10^3/uL (0.0-0.7) Basophils # (Auto) 0.0 x10^3/uL (0.0-0.2) Erythrocyte Sedimentation Rate 10 (0-15) Sodium Level 140 mmol/L (136-145) Potassium Level 4.3 mmol/L (3.5-5.1) Chloride Level 102 mmol/L (98-107) Carbon Dioxide Level 31 mmol/L (21-32) Anion Gap 7 (6-14) Blood Urea Nitrogen 19 mg/dL (8-26) Creatinine 1.0 mg/dL (0.7-1.3) Estimated GFR (Cockcroft-Gault) 80.1 Glucose Level 110 mg/dL (70-99) Calcium Level 9.3 mg/dL (8.5-10.1) Imaging Ultrasound today shows small fluid collection measuring approximately 5.4 x 2.8 x 0.6 cm. Assessment Assessment POD #4 I&D left leg hematoma Problems: Plan Plan of Care Ultrasound shows small fluid collection totaling 9mL, which is not indicated for further surgery. The wound is improved today, based on photos the patient shows me from yesterday. I recommended he continue compression, ice, elevation, and to take it easy. From ortho standpoint, he may be discharged to home today. Doxycycline 100mg BID, per ID. Pain medication and abx Rx already on chart. Patient states he cannot afford prescriptions, so he requested to talk to social work. Followup with [facility] in 10-14 days. BABITA KIM Feb 20, 2017 13:52
== END 2017-02-20 15:53 | disposition home or self-care (01) | DRG 580 ==
LOC: 5 NORTH 21:23
PROVIDERS: ADMIT Internal Medicine; ATTEND Internal Medicine
PROC: 0J9P0ZZ Drainage of Left Lower Leg Subcutaneous Tissue and Fascia, Open Approach (ICD-10-PCS; principal; 2017-02-16 09:15)
DX: S80.12XA Contusion of left lower leg, initial encounter (principal); L03.116 Cellulitis of left lower limb; L02.416 Cutaneous abscess of left lower limb; F41.9 Anxiety disorder, unspecified; F90.9 Attention-deficit hyperactivity disorder, unspecified type; N40.0 Benign prostatic hyperplasia without lower urinary tract symptoms; Z86.19 Personal history of other infectious and parasitic diseases
CPT/HCPCS: 36415; 76881; 80048; 80053; 80202; 81001; 85025; 85651; 87071; 87075; 87205; 90714; G0103; J0690; J0696; J2250; J2270; J2704; J3010; J3370; A4461